=== PATIENT | female | born 1990 | race African-American/Black ===

== ENCOUNTER 2016-05-04 12:56 | Emergency (ER) | payer BC, OTHER ==
--- NOTE | 2016-05-04 13:06 | ER Document Report ---
ED Medical Screen (RME) - General Stated Complaint: POSSIBLE FOREIGN BODY Notes: 25 yo female c/o condom stuck in vagina since last night. no pain TRAVEL OUTSIDE OF THE [place] IN LAST 30 DAYS: No - Related Data Allergies/Adverse Reactions: No Known Drug Allergies Allergy (Verified 02/27/16 11:12) Past Medical History Pulmonary Medical History: Reports: Hx Bronchitis Endocrine Medical History: Denies: Hx Diabetes Mellitus Type 1, Hx Diabetes Mellitus Type 2 - Immunizations Immunizations up to date: Yes Hx Diphtheria, Pertussis, Tetanus Vaccination: Yes
[2016-05-04 14:09] VITALS: BP 124/78
--- NOTE | 2016-05-04 16:31 | ER Document Report ---
ED Foreign Body - General Mode of Arrival: Ambulatory Information source: Patient TRAVEL OUTSIDE OF THE [place] IN LAST 30 DAYS: No - HPI Patient complains to provider of: Condom stuck in Vagina Location of foreign body: Vagina Onset: This afternoon - General Chief Complaint: Foreign Body in Vagina Stated Complaint: POSSIBLE FOREIGN BODY Notes: 25 year old female presents to the ED complaining of a condom stuck in her vagina after having intercourse earlier today. Patient has no other complaints. (ADELAIDA CARABALLO) - Related Data Allergies/Adverse Reactions: No Known Drug Allergies Allergy (Verified 05/04/16 13:05) Home Medications: Current Home Medications No Home Medications 05/04/16 [History] Past Medical History - General Information source: Patient - Social History Smoking Status: Current Every Day Smoker Chew tobacco use (# tins/day): No Frequency of alcohol use: None Drug Abuse: None Family History: Reviewed & Not Pertinent Patient has suicidal ideation: No Patient has homicidal ideation: No Pulmonary Medical History: Reports: Hx Bronchitis Endocrine Medical History: Denies: Hx Diabetes Mellitus Type 1, Hx Diabetes Mellitus Type 2 Renal/ Medical History: Denies: Hx Peritoneal Dialysis Surgical Hx: Negative - Immunizations Immunizations up to date: Yes Hx Diphtheria, Pertussis, Tetanus Vaccination: Yes Review of Systems - Review of Systems Constitutional: No symptoms reported EENT: No symptoms reported Cardiovascular: No symptoms reported Respiratory: No symptoms reported Gastrointestinal: No symptoms reported Genitourinary: No symptoms reported Female Genitourinary: See HPI, Other - Condom stuck in patient's vagina Musculoskeletal: No symptoms reported Skin: No symptoms reported Hematologic/Lymphatic: No symptoms reported Neurological/Psychological: No symptoms reported -: Yes All other systems reviewed and negative Physical Exam - Vital signs Interpretation: Normal - General General appearance: Alert In distress: None - HEENT Head: Normocephalic, Atraumatic Eyes: Normal Extraocular movements intact: Yes Pupils: PERRL - Respiratory Respiratory status: No respiratory distress - Cardiovascular Rhythm: Regular - Abdominal Inspection: Normal Distension: No distension Tenderness: Nontender - Genitourinary External exam: Normal Bimanuel exam: Normal, Other - Condom was visualized and extracted. - Back Back: Normal - Extremities General upper extremity: Normal inspection, Normal ROM General lower extremity: Normal inspection, Normal ROM - Neurological Neuro grossly intact: Yes Cognition: Normal Orientation: AAOx4 [place] Coma Scale Eye Opening: Spontaneous [place] Coma Scale Verbal: Oriented Julita Coma Scale Motor: Obeys Commands [place] Coma Scale Total: 15 Speech: Normal - Psychological Associated symptoms: Normal affect, Normal mood - Skin Skin Temperature: Warm Skin Moisture: Dry Skin Color: Normal - Vital signs Vitals: Temp Pulse Resp BP Pulse Ox 98.2 F 76 18 124/78 97 05/04/16 13:07 05/04/16 13:07 05/04/16 13:07 05/04/16 13:07 05/04/16 13:07 (JOEY ISAAC) Course - Re-evaluation Re-evalutation: 05/04/16 16:32 I personally performed the services described in the documentation, reviewed and edited the documentation which was dictated to my scribe in my presence, and it accurately records my words and actions. presents to the emergency per chief complaint have a condom stuck in my vagina. She states it got left in the last evening she is unable to retain it. She has no complaints. No fever chills or discharge. Pelvic examination performed condom was easily pulled out with Dolly forceps. Patient is stable no puncture wounds infection or drainage. Patient was discharged follow up as needed return for increasing worsening or new symptoms (JOEY ISAAC) - Vital Signs Vital signs: Temp Pulse Resp BP Pulse Ox 98.2 F 76 18 124/78 97 05/04/16 13:07 05/04/16 13:07 05/04/16 13:07 05/04/16 13:07 05/04/16 13:07 (JOEY ISAAC) (ADELAIDA CARABALLO) Discharge - Discharge Clinical Impression: vaginal foreign body with removal Condition: Stable Disposition: HOME, SELF-CARE Additional Instructions: You have been seen and evaluated for a condom in your vagina which was successfully removed without complications. Follow-up as needed with your primary care physician return for increasing worsening or new symptoms Scribe Documentation - Scribe Written by Scribe:: Carina Mulligan, 05/04/2016, [id number] acting as scribe for :: Salvador
== END 2016-05-04 16:54 | disposition home or self-care (01) ==
LOC: ER 12:56
DX: T19.2XXA Foreign body in vulva and vagina, initial encounter (principal); F17.200 Nicotine dependence, unspecified, uncomplicated; X58.XXXA Exposure to other specified factors, initial encounter
CPT/HCPCS: 99283

== ENCOUNTER 2016-09-23 12:46 | Emergency (ER) | payer SELFPAY ==
--- NOTE | 2016-09-23 13:05 | ER Document Report ---
ED Medical Screen (RME) - General Chief Complaint: Abdominal Pain Stated Complaint: FOOT PAIN,HEADACHE,RASH Time Seen by Provider: 09/23/16 13:03 Mode of Arrival: Ambulatory Information source: Patient TRAVEL OUTSIDE OF THE [place] IN LAST 30 DAYS: No - HPI Patient complains to provider of: abdominal pain, rash, rectal bleeding Onset: Other - Pt with multiple c/o including AHUJA, rash, R foot pain, abdominal pain, and rectal bleeding . - Related Data Allergies/Adverse Reactions: No Known Drug Allergies Allergy (Verified 05/04/16 13:05) Past Medical History Pulmonary Medical History: Reports: Hx Bronchitis Endocrine Medical History: Denies: Hx Diabetes Mellitus Type 1, Hx Diabetes Mellitus Type 2 Renal/ Medical History: Denies: Hx Peritoneal Dialysis - Immunizations Immunizations up to date: Yes Hx Diphtheria, Pertussis, Tetanus Vaccination: Yes Physical Exam - Vital signs Vitals: Temp Pulse Resp BP Pulse Ox 98.1 F 69 14 133/94 H 98 09/23/16 12:51 09/23/16 12:51 09/23/16 12:51 09/23/16 12:51 09/23/16 12:51 Course - Vital Signs Vital signs: Temp Pulse Resp BP Pulse Ox 98.1 F 69 14 133/94 H 98 09/23/16 12:51 09/23/16 12:51 09/23/16 12:51 09/23/16 12:51 09/23/16 12:51
[2016-09-23 13:32] LABS: ABSOLUTE BASOPHILS # (AUTO) 0.1 10^3/uL (0.0-0.2); ABSOLUTE EOSINOPHILS # (AUTO) 0.3 10^3/uL (0.0-0.6); ABSOLUTE LYMPHOCYTES (AUTO) 2.1 10^3/uL (0.5-4.7); ABSOLUTE MONOCYTES (AUTO) 0.6 10^3/uL (0.1-1.4); BASOPHILS % (AUTO) 1.3 % (0-2); EOSINOPHILS % (AUTO) 5.4 % (0-6); HEMATOCRIT 39.9 % (36.0-47.0); HEMOGLOBIN 13.1 g/dL (12.0-15.5); HGB HCT DIFFERENCE -0.6; LYMPHOCYTES % (AUTO) 34.4 % (13-45); MEAN CORPUSCULAR HEMOGLOBIN 28.1 pg (27.0-33.4); MEAN CORPUSCULAR HGB CONC 32.7 g/dL (32.0-36.0); MEAN CORPUSCULAR VOLUME 86 fl (80-97); MONOCYTES % (AUTO) 9.4 % (3-13); RED BLOOD COUNT 4.66 10^6/uL (3.72-5.28); RED CELL DISTRIBUTION WIDTH 13.8 % (11.5-14.0); SEGMENTED NEUTROPHILS % (AUTO) 49.5 % (42-78); WHITE BLOOD COUNT 6.1 10^3/uL (4.0-10.5)
[2016-09-23 13:38] LABS: APPEARANCE,URINE SLIGHTLY-CLOUDY; BILIRUBIN,URINE NEGATIVE (NEGATIVE); GLUCOSE, URINE NEGATIVE (NEGATIVE); KETONES,URINE NEGATIVE (NEGATIVE); LEUKOCYTE ESTERASE,URINE NEGATIVE (NEGATIVE); NITRITE,URINE NEGATIVE (NEGATIVE); PROTEIN,URINE NEGATIVE (NEGATIVE); UROBILINOGEN,URINE NEGATIVE mg/dL (<2.0)
[2016-09-23 13:49] LABS: ALANINE AMINOTRANSFERASE 29 U/L (9-52); ALBUMIN 4.4 g/dL (3.5-5.0); ALKALINE PHOSPHATASE 97 U/L (38-126); ANION GAP 10 (5-19); ASPARTATE AMINO TRANSFERASE 30 U/L (14-36); BILIRUBIN,DIRECT 0.2 mg/dL (0.0-0.4); BILIRUBIN,TOTAL 1.2 mg/dL (0.2-1.3); BLOOD UREA NITROGEN 13 mg/dL (7-20); CALCIUM 9.4 mg/dL (8.4-10.2); CARBON DIOXIDE 23 mmol/L (22-30); CHLORIDE 107 mmol/L (98-107); CREATININE RESULT 0.87 mg/dL (0.52-1.25); GLUCOSE 93 mg/dL (75-110); LIPASE 29.8 U/L (23-300); POTASSIUM 4.2 mmol/L (3.6-5.0); SODIUM 140.1 mmol/L (137-145); TOTAL PROTEIN 8.3 g/dL (6.3-8.2)
[2016-09-23] MEDS ORDERED: NORMAL SALINE 1000 ML 1,000 ML IV ONE (14:53)
[2016-09-23] MEDS ORDERED: KETOROLAC TROMETHAMINE INJ/PF 30 MG/1 ML SDV IV ONE (14:55)
[2016-09-23] MEDS ORDERED: PROCHLORPERAZINE EDISYLATE INJ 10 MG/2 ML VIAL IV ONE (14:55)
--- NOTE | 2016-09-23 14:59 | ER Document Report ---
ED GI/ - General Chief Complaint: Abdominal Pain Stated Complaint: FOOT PAIN,HEADACHE Time Seen by Provider: 09/23/16 13:03 Mode of Arrival: Ambulatory Information source: Patient Notes: Patient is a 25-year-old female who presents to the ER today for multiple complaints, including a "knot" to the bottom of the right foot 3 weeks and is very painful. She denies any injury, swelling, redness. She also complains of a migraine 2 days. She has a history of migraines. She admits to light and sound sensitivity but denies any nausea, vomiting. She has been taking Motrin at home which has not been helping. She denies any blurred vision. She also complains of a rash to her thighs, top of the foot that started approximately 3 weeks ago. She has no history of this rash. She states that it is very itchy. TRAVEL OUTSIDE OF THE [place] IN LAST 30 DAYS: No - Related Data Allergies/Adverse Reactions: No Known Drug Allergies Allergy (Verified 05/04/16 13:05) Past Medical History - General Information source: Patient - Social History Smoking Status: Unknown if Ever Smoked Chew tobacco use (# tins/day): No Family History: Reviewed & Not Pertinent Patient has suicidal ideation: No Patient has homicidal ideation: No Pulmonary Medical History: Reports: Hx Bronchitis Endocrine Medical History: Denies: Hx Diabetes Mellitus Type 1, Hx Diabetes Mellitus Type 2 Renal/ Medical History: Denies: Hx Peritoneal Dialysis Surgical Hx: Negative - Immunizations Immunizations up to date: Yes Hx Diphtheria, Pertussis, Tetanus Vaccination: Yes Review of Systems - Review of Systems Constitutional: No symptoms reported EENT: No symptoms reported Cardiovascular: No symptoms reported Respiratory: No symptoms reported Gastrointestinal: No symptoms reported Genitourinary: No symptoms reported Female Genitourinary: No symptoms reported Musculoskeletal: No symptoms reported Skin: See HPI Hematologic/Lymphatic: No symptoms reported Neurological/Psychological: See HPI Physical Exam - Vital signs Vitals: Temp Pulse Resp BP Pulse Ox 98.1 F 69 14 133/94 H 98 09/23/16 12:51 09/23/16 12:51 09/23/16 12:51 09/23/16 12:51 09/23/16 12:51 - Notes Notes: PHYSICAL EXAMINATION: GENERAL: Laying in dark room, otherwise in no acute distress. HEAD: Atraumatic, normocephalic. EYES: Pupils equal round and reactive to light, extraocular movements intact, sclera anicteric, conjunctiva are normal. NECK: Normal range of motion, supple without lymphadenopathy LUNGS: CTAB and equal. No wheezes rales or rhonchi. HEART: Regular rate and rhythm without murmurs ABDOMEN: Soft, no tenderness. No guarding, no rebound BACK: no vertebral tenderness, normal ROM GI/: no CVA tenderness EXTREMITIES: Normal range of motion, no pitting edema. No cyanosis. NEUROLOGICAL: Cranial nerves grossly intact. Normal sensory/motor exams. PSYCH: Normal mood, normal affect. SKIN: Warm, Dry, normal turgor, large callus to the plantar surface of the right foot, darkened macular rash with white plaques over anterior thighs, posterior thighs, dorsal right foot Course - Vital Signs Vital signs: Temp Pulse Resp BP Pulse Ox 98.1 F 69 14 133/94 H 98 09/23/16 12:51 09/23/16 12:51 09/23/16 12:51 09/23/16 12:51 09/23/16 12:51 - Laboratory Result Diagrams: 09/23/16 13:10 09/23/16 13:10 Laboratory results interpreted by me: 09/23/16 09/23/16 13:06 13:10 Total Protein 8.3 H Urine Blood LARGE H Discharge - Discharge Clinical Impression: Psoriasis, Callus Headache Qualifiers: Headache type: unspecified Headache chronicity pattern: acute headache Intractability: not intractable Qualified Code(s): R51 - Headache Condition: Stable Disposition: HOME, SELF-CARE Additional Instructions: Return immediately for any new or worsening symptoms. Follow up with primary care provider, call tomorrow to make followup appointment. Prescriptions: Hydrocortisone 28.35 gm TP DAILY #1 oint..gm. Ibuprofen [Motrin 800 mg Tablet] 800 mg PO Q8H PRN #30 tab PRN Reason: Forms: Return to Work
[2016-09-23] MEDS ORDERED: MUPIROCIN 2% OINTMENT 22 GM TP ONE (15:10)
[2016-09-23] MEDS ORDERED: HYDROXYZINE HCL 10 MG TABLET PO ONE (15:20)
[2016-09-23 16:21] VITALS: BP 114/79
== END 2016-09-23 16:21 | disposition home or self-care (01) ==
LOC: ER 12:46
DX: L40.9 Psoriasis, unspecified (principal); L84 Corns and callosities; R51 Headache; K62.5 Hemorrhage of anus and rectum; R10.9 Unspecified abdominal pain; M79.671 Pain in right foot
CPT/HCPCS: 99284; 96361; 96374; 96375; 36415; 83690; 85025; 81025; 80053; 81001; J1885; J0780; J7030; J3490

== ENCOUNTER 2016-12-05 08:25 | Emergency (ER) | payer SELFPAY ==
[2016-12-05] MEDS ORDERED: HYDROMORPHONE HCL INJ/PF 2 MG/ML AMPULE IM ONE (09:38)
[2016-12-05] MEDS ORDERED: KETOROLAC TROMETHAMINE 60 MG/2 ML SDV IM ONE (09:38)
--- NOTE | 2016-12-05 09:41 | ER Document Report ---
HPI - HPI Patient complains to provider of: Right lower leg pain Onset: Other Onset/Duration: Worse - 1 month Quality of pain: Sharp Pain Level: 5 Context: Patient complains of right hip pain that radiates to the right lower leg for the past month. Patient denies any injury. Patient does complain of malodorous urine. Patient denies any fever. Patient denies any urinary retention or incontinence. Associated Symptoms: Other - Right lower extremity pain. denies: Fever Exacerbated by: Standing, Movement, Walking Relieved by: Denies Similar symptoms previously: No Recently seen / treated by doctor: Yes - ROS ROS below otherwise negative: Yes Systems Reviewed and Negative: Yes All other systems reviewed and negative - CONSTITUTIONAL Constitutional: DENIES: Fever - NEURO Neurology: DENIES: Headache, Weakness - GASTROINTESTINAL Gastrointestinal: DENIES: Nausea - URINARY Urinary: DENIES: Dysuria Notes: Malodorous urine - REPRODUCTIVE Reproductive: DENIES: : - MUSCULOSKELETAL Musculoskeletal: REPORTS: Extremity pain. DENIES: Back Pain, Neck Pain - DERM Skin Color: Normal Skin Problems: None Past Medical History - General Information source: Patient - Social History Smoking Status: Current Every Day Smoker Frequency of alcohol use: None Drug Abuse: None Occupation: None Family History: None - Medical History Medical History: Negative Pulmonary Medical History: Reports: Hx Bronchitis Endocrine Medical History: Denies: Hx Diabetes Mellitus Type 1, Hx Diabetes Mellitus Type 2 Renal/ Medical History: Denies: Hx Peritoneal Dialysis Surgical Hx: Negative - Immunizations Immunizations up to date: Yes Hx Diphtheria, Pertussis, Tetanus Vaccination: Yes Vertical Provider Document - CONSTITUTIONAL Agree With Documented VS: Yes General Appearance: Mild Distress - pt tearful, anxious - INFECTION CONTROL TRAVEL OUTSIDE OF THE [place] IN LAST 30 DAYS: No - HEENT HEENT: Atraumatic, Normocephalic - NECK Neck: Normal Inspection, Supple - RESPIRATORY Respiratory: Breath Sounds Normal, No Respiratory Distress O2 Sat by Pulse Oximetry: 100 - CARDIOVASCULAR Cardiovascular: Regular Rate, Regular Rhythm, No Murmur Pulses: Normal: Dorsalis pedis - MUSCULOSKELETAL/EXTREMETIES Musculoskeletal/Extremeties: MAEW - right SI joint tenderness - NEURO Level of Consciousness: Awake, Alert - Hysterically crying during history taking Motor/Sensory: No Motor Deficit, No Sensory Deficit Notes: no saddle anesthesia, no foot drop, normal gait - DERM Integumentary: Warm, Dry, Rash - scaling dorsal aspectof right foot Course - Re-evaluation Re-evalutation: 12/05/16 Patient visibly more comfortable. Discussed worsening symptoms that patient should return immediately for. The patient presents with right hip and lower extremity the pain without signs of spinal cord compression, cauda equina syndrome, infection, aneurysm, or other serious etiology. The patient is neurologically intact. Given the extremely risk of these diagnoses further testing and evaluation for these possibilities does not appear to be indicated at this time. Patient has been instructed to return if the symptoms worsen or change in any way. The patient has been informed that they may have pre-hypertension or hypertension based on a blood pressure reading in the emergency department. I recommend that patient call the primary care provider listed on their discharge instructions or a physician of their choice by this week to arrange follow-up for further evaluation of possible pre-hypertension or hypertension. - Vital Signs Vital signs: Temp Pulse Resp BP Pulse Ox 98.4 F 77 18 164/99 H 100 12/05/16 08:29 12/05/16 08:29 12/05/16 08:29 12/05/16 08:12/05/16 08:29 - Diagnostic Test Radiology reviewed: Reports reviewed Discharge - Discharge Clinical Impression: Elevated blood pressure reading, Facet arthritis of lumbar region Sciatica Qualifiers: Laterality: right Qualified Code(s): M54.31 - Sciatica, right side Hematuria Qualifiers: Hematuria type: unspecified type Qualified Code(s): R31.9 - Hematuria, unspecified Condition: Stable Disposition: HOME, SELF-CARE Instructions: Trimethoprim-Sulfa ([facility]), Urinary Tract Infection ([facility]) Additional Instructions: Return immediately for any new or worsening symptoms Followup with your primary care provider, call tomorrow to make a followup appointment Urine culture is pending, we will call if you need any different treatment LOW BACK PAIN: Three out of every four people will have an episode of disabling back pain during their lifetime. Most commonly the pain is due to straining of the muscles and ligaments in the low back. Usual treatment includes: (1) Rest on a firm surface. Avoid lying on your stomach. (2) Ice pack the painful area. After a few days, gentle heat may be used intermittently to relax the area, or ice packs can be continued. (3) Medication may be needed -- muscle relaxers and antiinflammatory medicines are commonly used. (4) As the back improves, exercises are prescribed to strengthen the back and abdominal muscles. Your doctor will advise you on the proper care for your back at each stage in your recovery. You may be better in a few days -- or healing may take several weeks. If new symptoms of a "herniated disc" (radiation of pain, numbness, or tingling down the back of the leg or weakness in the leg) occur, you should be re-examined. Further testing may be necessary. PAIN MEDICATION INJECTION: You have received an injection of a pain medication. You should experience significant pain relief within 45 minutes. If this injection was a narcotic -- it will impair your judgement, slow your reaction time and make you sleepy (as well as relieve your pain). Narcotics also can cause nausea. You should not drive, work with machinery, or perform any task requiring mental alertness until all effects of the medication are gone -- six to eight hours. Do not take any alcohol, or sedatives, and do not take any other medication without checking with your physician. ORAL NARCOTIC MEDICATION: You have been given a prescription for pain control. This medication is a narcotic. It's best taken with food, as nausea can result if taken on an empty stomach. Don't operate machinery or drive within six hours of taking this medication. Do not combine this medicine with alcohol, or with any medication which can cause sedation (such as cold tablets or sleeping pills) unless you get permission from the physician. Narcotics tend to cause constipation. If possible, drink plenty of fluids and eat a diet high in fiber and fruits. Please be aware that prescription narcotics also have the potential for abuse. People become addicted to these medications because of the general sense of wellbeing that they induce. This feeling along with a significant reduction in tension, anxiety, and aggression provides a stimulating seductive quality to these drugs. Once your pain is under control, we encourage you to discard your unused narcotics. ICE PACKS: Apply ice packs frequently against the painful area. Many different schedules are recommended, such as "20 minutes on, 20 minutes off" or "one hour ice, two hours rest." If you need to work, you may need to go longer between ice treatments. You should plan to have the area ice packed AT LEAST one fourth of the time. The ice should be applied over the wrap, tape, or splint, or over a layer of cloth -- not directly against the skin. Some ice bags have a built-in cloth and can be put directly on the skin. WARM PACKS: After approximately two days, apply gentle heat (such as a heating pad or hot water bottle) for about 20 to 30 minutes about every two hours -- at least four times daily. Warmth and elevation will help you make a more rapid recovery , and will ease the pain considerably. Do not use HOT heat, and never apply heat for longer than 30 minutes. The continuous heat can invisibly damage skin and muscles -- even when no burn is seen on the surface. Damaged muscles can make you MORE sore. FOLLOW-UP CARE: If you have been referred to a physician for follow-up care, call the physician s office for an appointment as you were instructed or within the next two days. If you experience worsening or a significant change in your symptoms, notify the physician immediately or return to the Emergency Department at any time for re-evaluation. Prescriptions: Naproxen [Naprosyn 250 Nmg Tablet] 1 tab PO BID #14 tablet Oxycodone HCl/Acetaminophen [Percocet 5-325 mg Tablet] 1 - 2 tab PO ASDIR PRN # 15 tablet PRN Reason: Sulfamethoxazole/Trimethoprim [Bactrim Ds Tablet] 1 each PO BID #10 tablet Forms: Elevated Blood Pressure Referrals: [facility] [Provider Group] - Follow up as needed [facility] [Provider Group] - Follow up tomorrow
[2016-12-05 10:36] LABS: APPEARANCE,URINE CLOUDY; BILIRUBIN,URINE NEGATIVE (NEGATIVE); GLUCOSE, URINE NEGATIVE (NEGATIVE); KETONES,URINE NEGATIVE (NEGATIVE); LEUKOCYTE ESTERASE,URINE TRACE (NEGATIVE); NITRITE,URINE NEGATIVE (NEGATIVE); PROTEIN,URINE NEGATIVE (NEGATIVE); URINE SPECIFIC GRAVITY 1.026; UROBILINOGEN,URINE NEGATIVE mg/dL (<2.0)
--- NOTE | 2016-12-05 11:59 | RADIOLOGY REPORT (SQ) ---
EXAM DESCRIPTION: L SPINE WHOLE COMPLETED DATE/TIME: 12/05/2016 11:24 am REASON FOR STUDY: RLE pain COMPARISON: CT abdomen and pelvis 05/26/2012 Lumbar spine films 02/27/2016 NUMBER OF VIEWS: Five views including obliques. TECHNIQUE: AP, lateral, oblique, and sacral radiographic images acquired of the lumbar spine. LIMITATIONS: None. FINDINGS: MINERALIZATION: Normal. SEGMENTATION: Normal. No transitional anatomy. ALIGNMENT: Normal. VERTEBRAE: Maintained height. No fracture or worrisome bone lesion. DISCS: Very mild disc space loss of height at L5-S1. POSTERIOR ELEMENTS: Pedicles and facets are intact. No pars defect or posterior arch defects. Mild bilateral facet arthropathy at L5-S1. HARDWARE: None in the spine. PARASPINAL SOFT TISSUES: Normal. PELVIS: Intact as visualized. No fractures or worrisome bone lesions. SI joints intact. OTHER: No other significant finding. IMPRESSION: Mild degenerative changes at L5-S1. TECHNICAL DOCUMENTATION: JOB ID: [id number] [employer]- All Rights Reserved
[2016-12-05 12:33] VITALS: BP 129/80
== END 2016-12-05 12:30 | disposition home or self-care (01) ==
LOC: ER 08:25
DX: M54.31 Sciatica, right side (principal); R31.9 Hematuria, unspecified; R03.0 Elevated blood-pressure reading, without diagnosis of hypertension; M13.88 Other specified arthritis, other site; M79.604 Pain in right leg; M25.551 Pain in right hip; F17.200 Nicotine dependence, unspecified, uncomplicated
CPT/HCPCS: 99283; 96372; 87086; 81025; 87088; 81001; 87186; 72110; J1885; J1170

== ENCOUNTER 2017-01-04 09:34 | Emergency (ER) | payer SELFPAY ==
[2017-01-04] MEDS ORDERED: DEXAMETHASONE SOD PHOS INJ 10 MG/1 ML VIAL IV ONE (10:27)
[2017-01-04] MEDS ORDERED: KETOROLAC TROMETHAMINE INJ/PF 30 MG/1 ML SDV IV ONE (10:27)
[2017-01-04] MEDS ORDERED: LIDOCAINE 5% (700 MG) TRANSDERMAL ADH..PATCH TP ONE (10:39)
--- NOTE | 2017-01-04 10:43 | ER Document Report ---
ED ENT - General Chief Complaint: Sore Throat Stated Complaint: DIFFICULTY BREATHING Time Seen by Provider: 01/04/17 10:13 Mode of Arrival: Ambulatory Information source: Patient Notes: 26-year-old female with complaints of sore throat with left ear pain runny nose for 2-3 days. She states she has not been able to eat anything for 2 days. She states that her throat is so sore that it is very difficult to swallow. She states she also has a history of sciatic pain and it is been bad for the last couple days to the point that she cannot sleep. TRAVEL OUTSIDE OF THE [place] IN LAST 30 DAYS: No - HPI Patient complains to provider of: Throat problem, Other - low back pain Onset: Other - 2 days Onset/Duration: Gradual, Worse Severity: Severe Pain Level: 5 Location of pain: Ears, Throat, Other - low back Associated symptoms: Runny nose, Sinus drainage, Sore throat, Other - left very large tonsil Similar symptoms previously: Yes - Yes to the back pain no to the sore throat - Related Data Allergies/Adverse Reactions: No Known Drug Allergies Allergy (Verified 01/04/17 09:35) Past Medical History - Social History Smoking Status: Current Every Day Smoker Cigarette use (# per day): Yes - 5 cigarettes a day Chew tobacco use (# tins/day): No Smoking Education Provided: Yes - Less than 1 minute Frequency of alcohol use: None Drug Abuse: None Occupation: None Lives with: Family Family History: Hypertension, Other - Father on dialysis Patient has suicidal ideation: No Patient has homicidal ideation: No - Past Medical History Cardiac Medical History: Reports: None Pulmonary Medical History: Reports: Hx Bronchitis EENT Medical History: Reports: None Neurological Medical History: Reports: None Endocrine Medical History: Reports: None Renal/ Medical History: Reports: None Malignancy Medical History: Reports: None GI Medical History: Reports: None Musculoskeltal Medical History: Reports Hx Arthritis, Reports Hx Musculoskeletal Deformity - Sciatica Skin Medical History: Reports None Traumatic Medical History: Reports: None Infectious Medical History: Reports: None Surgical Hx: Negative - Immunizations Immunizations up to date: Yes Hx Diphtheria, Pertussis, Tetanus Vaccination: Yes Review of Systems - Review of Systems Constitutional: Recent illness. denies: Fever EENT: Ear pain, Nose discharge, Sinus discharge, Throat pain Cardiovascular: No symptoms reported Respiratory: No symptoms reported Gastrointestinal: No symptoms reported Genitourinary: No symptoms reported Female Genitourinary: No symptoms reported Musculoskeletal: Back pain Skin: No symptoms reported Hematologic/Lymphatic: No symptoms reported Neurological/Psychological: No symptoms reported Physical Exam - Vital signs Vitals: Temp Pulse Resp BP Pulse Ox 98.7 F 96 16 136/80 H 99 01/04/17 09:39 01/04/17 09:39 01/04/17 09:39 01/04/17 09:39 01/04/17 09:39 Interpretation: Normal - General General appearance: Appears well, Alert - HEENT Head: Normocephalic, Atraumatic Eyes: Normal Pupils: PERRL - Respiratory Respiratory status: No respiratory distress Chest status: Nontender Breath sounds: Normal Chest palpation: Normal - Cardiovascular Rhythm: Regular Heart sounds: Normal auscultation Murmur: No - Abdominal Inspection: Normal Distension: No distension Bowel sounds: Normal Tenderness: Nontender Organomegaly: No organomegaly - Back Back: Normal, Tender, Other - Pain radiating to legs. No: Deformity/step-off, CVA tenderness, Scars, Scoliosis, Wounds - Extremities General upper extremity: Normal inspection, Nontender, Normal color, Normal ROM , Normal temperature General lower extremity: Normal inspection, Nontender, Normal color, Normal ROM , Normal temperature, Normal weight bearing. No: Jorge's sign - Neurological Neuro grossly intact: Yes Cognition: Normal Orientation: AAOx4 [place] Coma Scale Eye Opening: Spontaneous [place] Coma Scale Verbal: Oriented [place] Coma Scale Motor: Obeys Commands [place] Coma Scale Total: 15 Speech: Normal Motor strength normal: LUE, RUE, LLE, RLE Sensory: Normal - Psychological Associated symptoms: Normal affect, Normal mood - Skin Skin Temperature: Warm Skin Moisture: Dry Skin Color: Normal Course - Re-evaluation Re-evalutation: 01/04/17 18:56 Patient is seen 2 times for her tonsillitis the first time she had CT soft tissue neck with contrast with strep test CBC chemistry. She was treated with Toradol Decadron and clindamycin IV. She was discharged and sent to Dr. Zee' s office for follow-up due to the size of her left tonsil. When she got there she refused to pay a co-pay and so Dr. Deleon called had her brought back to the emergency room so he could examine her in the emergency room. She returned she had a complete examination and he stated that she needed to be treated as we had discussed earlier and to follow-up with his office if she decided she wanted the tonsils out as he recommended. Patient was again discharged home. - Vital Signs Vital signs: Temp Pulse Resp BP Pulse Ox 98.1 F 85 18 130/74 H 100 01/04/17 12:08 01/04/17 12:08 01/04/17 12:08 01/04/17 12:08 01/04/17 12:08 - Laboratory Result Diagrams: 01/04/17 10:39 01/04/17 10:39 Laboratory results interpreted by me: 01/04/17 10:39 Monocytes % 13.6 H - Diagnostic Test Radiology reviewed: Image reviewed, Reports reviewed Discharge - Discharge Clinical Impression: TONSILITIS LEFT Condition: Stable Disposition: HOME, SELF-CARE Additional Instructions: Tonsillitis Tonsillitis is infection of the tonsils. Symptoms include sore throat, difficulty swallowing, fever and aches, and tender lumps under the angle of the jaw. Tonsillitis can be caused by bacteria or viruses. Viral tonsillitis must get better on its own. Antibiotics don't help. The doctor may test for mononucleosis if symptoms last many days. We can only treat the symptoms. Bacterial tonsillitis is treated with antibiotics. It may take a few days before improvement occurs. It's important to take all the antibiotics. Take acetaminophen or ibuprofen for pain and fever. Sip frequent clear liquids, or use popsicles or ice chips. Anesthetic sprays or lozenges may help a little (the pain of tonsillitis is deep, and isn't helped much by numbing the surface). Make sure the air in the room is not too dry. Avoid using decongestants or antihistamines. Tonsillectomy may be necessary if you have several episodes of tonsillitis within a couple of years, or if there are complications from your tonsillitis. It's usually not needed. Call the doctor if there is no improvement in two days, or if you have difficulty breathing, increasing throat pain, high fever, rash, or frequent vomiting. Augmentin Augmentin is a mixture of amoxicillin and clavulanate. Amoxicillin is a member of the penicillin family. It covers the germs likely to cause ear, bronchial, and urinary infections better than plain penicillin. The addition of clavulanate allows it to cover staph infections of the skin, as well as resistant cases of ear and sinus infections. Your physician has chosen Augmentin for you because of the special nature of your situation. Augmentin is best taken with meals. Nausea after taking the medication is rare, but can occur. Diarrhea can occur, particularly in small children. Vaginal yeast infections, and oral thrush in infants are also common. Contact your physician if these problems occur. Allergy to penicillins is common. If you have had an allergic reaction to any drug of the penicillin family, you should never take any other penicillin. Notify your doctor at once if you develop hives, shortness of breath, swelling, or faintness. STEROID MEDICATION: You have been given an injection of medicine of the cortisone/steroid class. This medication is used to control inflammation or allergy. It is often continued as a pill for a short period of time, until the acute process subsides. There are usually no side effects from short-term use of cortisone-like medications. Some persons feel an increased sense of well-being and are not sleepy at bedtime. Long-term use of cortisone medications is best avoided, unless required for a severe condition. If your condition does not remit, or relapses after the course of corticosteroid medication, you should consult your physician. STEROID MEDICATION: You have been given a medicine of the cortisone/steroid class. This medication is used to control inflammation or allergy. It is usually only given for a short period of time, until the acute process subsides. There are usually no side effects from short-term use of cortisone-like medications. Some persons feel an increased sense of well-being and are not sleepy at bedtime. Long-term use of cortisone medications is best avoided, unless required for a severe condition. If your condition does not remit, or relapses after the course of corticosteroid medication, you should consult your physician. ORAL NARCOTIC MEDICATION: You have been given a prescription for pain control. This medication is a narcotic. It's best taken with food, as nausea can result if taken on an empty stomach. Don't operate machinery or drive within six hours of taking this medication. Do not combine this medicine with alcohol, or with any medication which can cause sedation (such as cold tablets or sleeping pills) unless you get permission from the physician. Narcotics tend to cause constipation. If possible, drink plenty of fluids and eat a diet high in fiber and fruits. Please be aware that prescription narcotics also have the potential for abuse. People become addicted to these medications because of the general sense of wellbeing that they induce. This feeling along with a significant reduction in tension, anxiety, and aggression provides a stimulating seductive quality to these drugs. Once your pain is under control, we encourage you to discard your unused narcotics. FOLLOW-UP CARE: If you have been referred to a physician for follow-up care, call the physician s office for an appointment as you were instructed or within the next two days. If you experience worsening or a significant change in your symptoms, notify the physician immediately or return to the Emergency Department at any time for re-evaluation. Prescriptions: Hydrocodone/Acetaminophen [[place] 5-325 mg Tablet] 1 tab PO Q6HP PRN #10 tablet PRN Reason: Amox Tr/Potassium Clavulanate [Augmentin 400-57 mg/5 mL Suspension] 875 mg PO TID 10 Days #2 bottle Dexamethasone [Decadron 4 Mg Tablet] 8 mg PO DAILY 3 Days #6 tablet Forms: Smoking Cessation Education, Elevated Blood Pressure Referrals: JACKIE ARREOLA MD [Primary Care Provider] - Follow up as needed OCTAVIA GRANADOS DO [ASSOCIATE] - Follow up as needed
[2017-01-04 10:54] LABS: ABSOLUTE BASOPHILS # (AUTO) 0.1 10^3/uL (0.0-0.2); ABSOLUTE EOSINOPHILS # (AUTO) 0.1 10^3/uL (0.0-0.6); ABSOLUTE LYMPHOCYTES (AUTO) 1.3 10^3/uL (0.5-4.7); ABSOLUTE MONOCYTES (AUTO) 1.1 10^3/uL (0.1-1.4); ABSOLUTE NEUT (AUTO) 5.7 10^3/uL (1.7-8.2); BASOPHILS % (AUTO) 0.7 % (0-2); EOSINOPHILS % (AUTO) 0.9 % (0-6); HEMOGLOBIN 12.5 g/dL (12.0-15.5); HGB HCT DIFFERENCE 0.5; LYMPHOCYTES % (AUTO) 15.5 % (13-45); MEAN CORPUSCULAR HEMOGLOBIN 28.3 pg (27.0-33.4); MEAN CORPUSCULAR HGB CONC 33.7 g/dL (32.0-36.0); MEAN CORPUSCULAR VOLUME 84 fl (80-97); MONOCYTES % (AUTO) 13.6 % (3-13); RED BLOOD COUNT 4.42 10^6/uL (3.72-5.28); RED CELL DISTRIBUTION WIDTH 13.7 % (11.5-14.0); SEGMENTED NEUTROPHILS % (AUTO) 69.3 % (42-78); WHITE BLOOD COUNT 8.2 10^3/uL (4.0-10.5)
[2017-01-04 11:10] LABS: ANION GAP 10 (5-19); BLOOD UREA NITROGEN 13 mg/dL (7-20); CALCIUM 9.4 mg/dL (8.4-10.2); CARBON DIOXIDE 26 mmol/L (22-30); CHLORIDE 106 mmol/L (98-107); CREATININE RESULT 0.73 mg/dL (0.52-1.25); GLUCOSE 89 mg/dL (75-110); SODIUM 142.4 mmol/L (137-145)
--- NOTE | 2017-01-04 11:29 | RADIOLOGY REPORT (SQ) ---
EXAM DESCRIPTION: CT SOFT TISSUE NECK WITH COMPLETED DATE/TIME: 01/04/2017 11:15 am REASON FOR STUDY: extremely large left tonsil COMPARISON: CT soft tissue neck 10/11/2015 TECHNIQUE: Post IV contrasted scanning from skull base through lung apices with review of bone, soft tissue and lung windows. Reconstructed coronal and sagittal MPR images reviewed. All images stored on PACS. All CT scanners at this facility use dose modulation, iterative reconstruction, and/or weight based d osing when appropriate to reduce radiation dose to as low as reasonably achievable (ALARA). [facility]: Dose Right [facility]: CareDose [facility]: Dose Right [facility]: Teradose 4D [facility]: EMED Co CONTRAST TYPE AND DOSE: contrast/concentration: Isovue 370.00 mg/ml; Total Contrast Delivered: 60.8 ml; Total Saline Delivered: 12.0 ml RENAL FUNCTION: None required. The patient is less than 50 years old. RADIATION DOSE: Up-to-date CT equipment and radiation dose reduction techniques were employed. CTDIv ol: 15.9 mGy. DLP: 435 mGy-cm. . LIMITATIONS: None. FINDINGS: SKULL BASE: Intact. MAJOR SALIVARY GLANDS: No solid or cystic masses. No inflammatory changes. LYMPHADENOPATHY: There is diffuse cervical adenopathy mova-arckzrh-nlvy-[id number], throughout the carotid space and posterior triangle regions MUCOSAL MASSES OR ASYMMETRY: Bilateral pharyngeal tonsils are enlarged left greater than right. Tons ils meet in the midline pharynx causing moderate narrowing. On the left side, the tonsil is 4 cm tire changer aircraft niocaudad by 3.2 cm AP by 2.5 cm transverse. No discrete left intra tonsillar or peritonsillar absce ss. On the right side, the pharyngeal tonsil measures 3.4 cm craniocaudad by 2.5 cm AP x 1.7 cm transvers e. No right-sided intra or peritonsillar abscess. Parapharyngeal fat is intact bilaterally. LARYNX/CORDS: No abnormal findings. VASCULAR STRUCTURES: The major vessels are patent. LUNG APICES: Clear. BONES: Intact. THYROID: Normal size. No masses. PARANASAL SINUSES: Clear. OTHER: No other significant finding. IMPRESSION: Enlarged left pharyngeal tonsil without intra or peritonsillar abscess. Moderate pharyn geal airway narrowing. Probable reactive cervical adenopathy left greater than right TECHNICAL DOCUMENTATION: JOB ID: [id number] Quality ID # [id number]: Final reports with documentation of one or more dose reduction techniques (e.g., Au tomated exposure control, adjustment of the mA and/or kV according to patient size, use of iterative reconstruction technique) 2010 [employer]- All Rights Reserved
[2017-01-04 12:08] VITALS: BP 130/74
== END 2017-01-04 12:15 | disposition home or self-care (01) ==
LOC: ER 09:34
DX: J03.90 Acute tonsillitis, unspecified (principal); J02.9 Acute pharyngitis, unspecified; R06.02 Shortness of breath; H92.02 Otalgia, left ear; R09.89 Other specified symptoms and signs involving the circulatory and respiratory systems; F17.210 Nicotine dependence, cigarettes, uncomplicated
CPT/HCPCS: 99284; 96374; 96375; 36415; 87070; 87880; 84703; 85025; 86308; 80048; 70491; J1885; J1100

== ENCOUNTER 2017-01-04 13:47 | Emergency (ER) | payer SELFPAY ==
[2017-01-04] MEDS ORDERED: LIDOCAINE 2% VISCOUS SOLN 20 ML UDCUP PO ONE (14:51)
--- NOTE | 2017-01-04 15:11 | ER Document Report ---
ED ENT - General Chief Complaint: Sore Throat Stated Complaint: SORE THROAT, SWELLING Time Seen by Provider: 01/04/17 13:53 Mode of Arrival: Ambulatory Information source: Patient Notes: Patient was seen earlier today for complaint of sore throat with left ear pain runny nose 5-3 days. Her left tonsil was considerably larger than her right and was patient her uvula to the right. She was speaking with a muffled voice. Labs CT were completed patient was treated with clindamycin Toradol and Decadron. ENT was consulted and patient was sent to his office for an evaluation. When she got to his office she was unable to pay a co-pay so he sent the patient back to the emergency room so that he could assess her in the emergency room. TRAVEL OUTSIDE OF THE [place] IN LAST 30 DAYS: No - HPI Patient complains to provider of: Throat problem Onset: Other - 2-3 days Onset/Duration: Gradual Quality of pain: Sharp, Stabbing Severity: Moderate Pain Level: 3 Context: Recent Illness Location of pain: Ears, Nose, Sinus, Throat Associated symptoms: Ear pain, Runny nose, Sinus pain, Sinus drainage, Sore throat, Other - Muffled voice and back pain Similar symptoms previously: Yes Recently seen / treated by doctor: Yes - Related Data Allergies/Adverse Reactions: No Known Drug Allergies Allergy (Verified 01/04/17 09:35) Past Medical History - General Information source: Patient - Social History Smoking Status: Current Every Day Smoker Chew tobacco use (# tins/day): No Frequency of alcohol use: None Drug Abuse: None Occupation: None Lives with: Family Family History: Hypertension, Other - Early I had stated that follow was on dialysis actually it is her mother that it was on dialysis and has since Patient has suicidal ideation: No Patient has homicidal ideation: No - Past Medical History Cardiac Medical History: Reports: None Pulmonary Medical History: Reports: Hx Bronchitis EENT Medical History: Reports: None Neurological Medical History: Reports: None Endocrine Medical History: Reports: None Renal/ Medical History: Reports: None Malignancy Medical History: Reports: None GI Medical History: Reports: None Musculoskeltal Medical History: Reports Hx Arthritis, Reports Hx Musculoskeletal Deformity - Sciatica Skin Medical History: Reports None Psychiatric Medical History: Reports: None Traumatic Medical History: Reports: None Infectious Medical History: Reports: None Surgical Hx: Negative Past Surgical History: Reports: None - Immunizations Immunizations up to date: Yes Hx Diphtheria, Pertussis, Tetanus Vaccination: Yes Review of Systems - Review of Systems Constitutional: Fever, Recent illness EENT: Ear pain, Nose discharge, Sinus discharge, Throat pain, Other - Muffled voice improving after her Decadron and clindamycin and Toradol Cardiovascular: No symptoms reported Respiratory: No symptoms reported Gastrointestinal: No symptoms reported Genitourinary: No symptoms reported Female Genitourinary: No symptoms reported Musculoskeletal: Back pain - Patient states her back pain is better after the Toradol and Decadron but it is still present Skin: No symptoms reported Hematologic/Lymphatic: No symptoms reported Neurological/Psychological: No symptoms reported -: Yes All other systems reviewed and negative Physical Exam - Vital signs Vitals: Temp Pulse Resp BP Pulse Ox 98.1 F 88 18 128/73 H 100 01/04/17 14:13 01/04/17 14:13 01/04/17 14:13 01/04/17 14:13 01/04/17 14:13 Interpretation: Normal - General General appearance: Appears well, Alert - HEENT Head: Normocephalic, Atraumatic Eyes: Normal Pupils: PERRL Ears: Normal External canal: Normal Tympanic membrane: Normal Sinus: Normal Nasal: Purulent discharge, Swelling Mouth/Lips: Normal Mucous membranes: Normal Pharynx: Erythema, Exudate, Post nasal drainage, Tonsillar hypertrophy, Uvular edema. No: Blood in hypopharynx, Peritonsillar abscess, Retropharyngeal abscess , Potential airway comprom. Neck: Anterior cervical chain - Respiratory Respiratory status: No respiratory distress Chest status: Nontender Breath sounds: Normal Chest palpation: Normal - Cardiovascular Rhythm: Regular Heart sounds: Normal auscultation Murmur: No - Abdominal Inspection: Normal Distension: No distension Bowel sounds: Normal Tenderness: Nontender Organomegaly: No organomegaly - Back Back: Normal, Tender. No: Deformity/step-off, CVA tenderness, Vertebra tenderness, Scars, Scoliosis, Wounds - Extremities General upper extremity: Normal inspection, Nontender, Normal color, Normal ROM , Normal temperature General lower extremity: Normal inspection, Nontender, Normal color, Normal ROM , Normal temperature, Normal weight bearing. No: Jorge's sign - Neurological Neuro grossly intact: Yes Cognition: Normal Orientation: AAOx4 [place] Coma Scale Eye Opening: Spontaneous Julita Coma Scale Verbal: Oriented [place] Coma Scale Motor: Obeys Commands [place] Coma Scale Total: 15 Speech: Normal Motor strength normal: LUE, RUE, LLE, RLE Sensory: Normal - Psychological Associated symptoms: Normal affect, Normal mood - Skin Skin Temperature: Warm Skin Moisture: Dry Skin Color: Normal Course - Re-evaluation Re-evalutation: 01/04/17 19:[address] Granados examined the patient and discussed treatment plan and options with the patient, she was discharged home again. Patient was encouraged to follow-up with Dr. Granados as he recommended. He recommended removal of the tonsils but that it would be an elective procedure. Patient was instructed to return to the emergency room or to Dr. Beauchamp's office for any complications. - Vital Signs Vital signs: Temp Pulse Resp BP Pulse Ox 98.1 F 87 18 128/63 H 100 01/04/17 15:18 01/04/17 15:18 01/04/17 15:18 01/04/17 15:18 01/04/17 15:18 Discharge - Discharge Clinical Impression: Acute bacterial tonsillitis Condition: Stable Disposition: HOME, SELF-CARE Additional Instructions: Tonsillitis Tonsillitis is infection of the tonsils. Symptoms include sore throat, difficulty swallowing, fever and aches, and tender lumps under the angle of the jaw. Tonsillitis can be caused by bacteria or viruses. Viral tonsillitis must get better on its own. Antibiotics don't help. The doctor may test for mononucleosis if symptoms last many days. We can only treat the symptoms. Bacterial tonsillitis is treated with antibiotics. It may take a few days before improvement occurs. It's important to take all the antibiotics. Take acetaminophen or ibuprofen for pain and fever. Sip frequent clear liquids, or use popsicles or ice chips. Anesthetic sprays or lozenges may help a little (the pain of tonsillitis is deep, and isn't helped much by numbing the surface). Make sure the air in the room is not too dry. Avoid using decongestants or antihistamines. Tonsillectomy may be necessary if you have several episodes of tonsillitis within a couple of years, or if there are complications from your tonsillitis. It's usually not needed. Call the doctor if there is no improvement in two days, or if you have difficulty breathing, increasing throat pain, high fever, rash, or frequent vomiting. SORE THROAT: Sore throats may be caused by viruses, bacteria, or fungi. Most are due to a virus, and must get better on their own. Bacterial sore throats, particularly those due to "strep," need treatment with antibiotics. If an antibiotic is prescribed, be sure to take the medication for a full 10 days. Failure to take the antibiotic can result in complications such as rheumatic fever. Sometimes, an injection of antibiotics is given instead of pills or liquid. This single "shot" is equal in effectiveness to the oral medication. To relieve symptoms, take acetaminophen for pain. Sip clear liquids frequently, or eat popsicles or ice chips. Anesthetic sprays or lozenges may help. Make sure the air in the room is not too dry. Avoid using decongestants or antihistamines. Call the doctor if there is no improvement in two days, or if you have difficulty breathing, increasing throat pain, high fever, rash, or frequent vomiting. Augmentin Augmentin is a mixture of amoxicillin and clavulanate. Amoxicillin is a member of the penicillin family. It covers the germs likely to cause ear, bronchial, and urinary infections better than plain penicillin. The addition of clavulanate allows it to cover staph infections of the skin, as well as resistant cases of ear and sinus infections. Your physician has chosen Augmentin for you because of the special nature of your situation. Augmentin is best taken with meals. Nausea after taking the medication is rare, but can occur. Diarrhea can occur, particularly in small children. Vaginal yeast infections, and oral thrush in infants are also common. Contact your physician if these problems occur. Allergy to penicillins is common. If you have had an allergic reaction to any drug of the penicillin family, you should never take any other penicillin. Notify your doctor at once if you develop hives, shortness of breath, swelling, or faintness. STEROID MEDICATION: You have been given a medicine of the cortisone/steroid class. This medication is used to control inflammation or allergy. It is usually only given for a short period of time, until the acute process subsides. There are usually no side effects from short-term use of cortisone-like medications. Some persons feel an increased sense of well-being and are not sleepy at bedtime. Long-term use of cortisone medications is best avoided, unless required for a severe condition. If your condition does not remit, or relapses after the course of corticosteroid medication, you should consult your physician. FOLLOW-UP CARE: If you have been referred to a physician for follow-up care, call the physician s office for an appointment as you were instructed or within the next two days. If you experience worsening or a significant change in your symptoms, notify the physician immediately or return to the Emergency Department at any time for re-evaluation. Forms: Elevated Blood Pressure Referrals: OCTAVIA GRANADOS DO [ASSOCIATE] - Follow up as needed
[2017-01-04 15:18] VITALS: BP 128/63
--- NOTE | 2017-01-09 20:17 | CONSULTATION REPORT E ---
Consultation Report NAME: TASHI ROWE : 1990 AGE: 26Y DATE: 01/04/2017 TO: OCTAVIA GRANADOS D.O. FROM: XAVIER ANDRADE Requesting Physician HISTORY OF PRESENT ILLNESS/SUBJECTIVE: This is a 26-year-old -[place] female who was seen and evaluated in the [facility] Emergency Room setting by ER staff. ENT was consulted due to the significant tonsillar hypertrophy and tonsillar asymmetry, especially with respect to the left tonsil. The patient had reported approximately 3 to 5 days of worsening sore throat symptoms. The patient has a history of chronic recurrent tonsillitis with antibiotics being prescribed multiple times each year over the years due to these episodes. The patient denies history of prior peritonsillar abscesses. At present, the patient denies difficulty with breathing or with shortness of breath. She reported being able to tolerate p.o. intake, but her throat hurt a lot. The ER staff had also ordered at CT neck imaging study with contrast to rule out peritonsillar abscess. The impression was for an enlarged left tonsil without intra or peritonsillar abscess findings noted. There was report of moderate pharyngeal airway narrowing and probable reactive cervical lymphadenopathy, left greater than right. ALLERGIES: No known drug allergies. SOCIAL HISTORY: Current everyday smoker. No drug abuse. No alcohol use. PAST MEDICAL HISTORY: Unremarkable except as noted above and reported musculoskeletal difficulty with sciatica. PAST SURGICAL HISTORY: Unremarkable. No history of bleeding or blood clotting disorders. FAMILY HISTORY: Remarkable for hypertension. REVIEW OF SYSTEMS: Same as above, otherwise, unremarkable. PHYSICAL EXAMINATION: VITALS: Temperature 98.1, pulse 88, respirations 18, blood pressure 128/73, pulse ox was 100% on room air. GENERAL APPEARANCE: Patient was alert and oriented x3 and in no apparent distress. She was able to speak without difficulty. HEAD: Normocephalic, atraumatic. EYES: Extraocular muscles intact and the conjunctivae were unremarkable in appearance. EARS: External auditory canals were clear, tympanic membranes were intact, and no middle ear effusions were noted. NOSE: With nasal septal deviation and inferior turbinate hypertrophy. ORAL CAVITY: With moist mucous membranes and the lips were unremarkable in appearance. Oropharynx: Tonsils were significantly enlarged with the left appearing 3 to 4+ in size and the right 2 to 3+ in size. Otherwise, there were no findings concerning for a peritonsillar abscess. The soft palate was redundant in nature and the uvula was elongated. NECK: The upper neck was tender to palpation on each side and otherwise there was no other obvious lymphadenopathy noted. THE FLEXIBLE FIBEROPTIC NASOPHARYNGOLARYNGOSCOPY WAS COMPLETED FOLLOWS: The patient was verbally consented for fiberoptic endoscopy which she was in agreement to proceed with. A flexible fiberoptic endoscope was introduced transnasally with no sinonasal polyps noted, the nasopharynx/christiano were unremarkable, the oropharynx was with asymmetric tonsil hypertrophy as noted above, the oropharynx/hypopharynx were otherwise widely patent, mild base of tongue fullness noted, the vocal cord were symmetric and mobile. IMAGING: CT neck with contrast completed 01/04/2017 with findings as noted above was reviewed and discussed with the patient. ASSESSMENT AND PLAN: 1. Acute recurrent tonsillitis. 2. Tonsillar hypertrophy. PROCEDURE: Nasopharyngolaryngoscopy. CPT Code 20332. DICTATING PHYSICIAN: OCTAVIA GRANADOS D.O. [id number] PHY#: [id number] ID: [id number] JOB#: [id number] ACCT: [id number] cc:OCTAVIA GRANADOS D.O. >
== END 2017-01-04 15:25 | disposition home or self-care (01) ==
LOC: ER 13:47
DX: J03.80 Acute tonsillitis due to other specified organisms (principal); B96.89 Other specified bacterial agents as the cause of diseases classified elsewhere; J02.9 Acute pharyngitis, unspecified; H92.02 Otalgia, left ear; R09.89 Other specified symptoms and signs involving the circulatory and respiratory systems; F17.200 Nicotine dependence, unspecified, uncomplicated
CPT/HCPCS: 99283

== ENCOUNTER 2017-07-25 14:16 | Emergency (ER) | payer SELFPAY ==
[2017-07-25] MEDS ORDERED: ACETAMINOPHEN 325 MG TABLET PO ONE (14:32)
[2017-07-25] MEDS ORDERED: KETOROLAC TROMETHAMINE INJ/PF 30 MG/1 ML SDV IV ONE (14:38)
[2017-07-25] MEDS ORDERED: ONDANSETRON HCL INJ/PF 4 MG/2 ML SDV IV ONE (14:38)
[2017-07-25] MEDS ORDERED: DEXAMETHASONE SOD PHOS INJ 10 MG/1 ML VIAL IV ONE (14:46)
--- NOTE | 2017-07-25 15:00 | ER Document Report ---
ED General - General Chief Complaint: Sore Throat Stated Complaint: VOMITING Time Seen by Provider: 07/25/17 14:32 Mode of Arrival: Ambulatory Information source: Patient Notes: 26-year-old female presents to ED for complaint of nausea vomiting general body aches sore throat fever chills decreased appetite and unable to keep any food or fluid down for 3 days. She states she has a history of having strep every year but usually she does not have the nausea and vomiting. She states she does not been taken her temperature she does know she has had a fever and is been sweating and chills for 3 days. She is alert and oriented with a temperature of 103 pulse 108 respirations 16 blood pressure 138/79 TRAVEL OUTSIDE OF THE [place] IN LAST 30 DAYS: No - HPI Onset: Other Onset/Duration: Gradual, Persistent, Worse Quality of pain: Sharp, Stabbing, Throbbing Severity: Severe Pain Level: 5 Associated symptoms: Body/muscle aches, Chills, Productive cough, Fever, Nausea , Vomiting, Sore throat Exacerbated by: Food Relieved by: Denies Similar symptoms previously: Yes Recently seen / treated by doctor: No - Related Data Allergies/Adverse Reactions: No Known Drug Allergies Allergy (Verified 07/25/17 14:17) Past Medical History - General Information source: Patient - Social History Smoking Status: Current Every Day Smoker Cigarette use (# per day): Yes - 1/2 ppd Chew tobacco use (# tins/day): No Smoking Education Provided: Yes - 4 min Frequency of alcohol use: Social Drug Abuse: Marijuana Lives with: Parents Family History: Hypertension, Other - Early I had stated that follow was on dialysis actually it is her mother that it was on dialysis and has since Patient has suicidal ideation: No Patient has homicidal ideation: No - Past Medical History Cardiac Medical History: Reports: None Pulmonary Medical History: Reports: None, Hx Bronchitis EENT Medical History: Reports: Throat Neurological Medical History: Reports: None Endocrine Medical History: Reports: None Renal/ Medical History: Reports: None Malignancy Medical History: Reports: None GI Medical History: Reports: None Musculoskeltal Medical History: Reports Hx Arthritis, Reports Hx Musculoskeletal Deformity - Sciatica Skin Medical History: Reports None Psychiatric Medical History: Reports: None Traumatic Medical History: Reports: None Infectious Medical History: Reports: None Surgical Hx: Negative Past Surgical History: Reports: None - Immunizations Immunizations up to date: Yes Hx Diphtheria, Pertussis, Tetanus Vaccination: Yes Review of Systems - Review of Systems Constitutional: Chills, Fever, Recent illness EENT: Throat pain, Difficulty swallowing Cardiovascular: No symptoms reported Gastrointestinal: Nausea, Vomiting Genitourinary: No symptoms reported Female Genitourinary: No symptoms reported Musculoskeletal: No symptoms reported Skin: No symptoms reported Hematologic/Lymphatic: No symptoms reported Neurological/Psychological: No symptoms reported -: Yes All other systems reviewed and negative Physical Exam - Vital signs Vitals: Temp Pulse Resp BP Pulse Ox 103.0 F H 104 H 16 138/79 H 99 07/25/17 14:25 07/25/17 14:25 07/25/17 14:25 07/25/17 14:25 07/25/17 14:25 Interpretation: Normal - General General appearance: Appears well, Alert - HEENT Head: Normocephalic, Atraumatic Eyes: Normal Pupils: PERRL Ears: Normal External canal: Normal Tympanic membrane: Normal Sinus: Normal Nasal: Swelling, Clear rhinorrhea Mouth/Lips: Normal Mucous membranes: Normal Pharynx: Erythema, Exudate, Post nasal drainage, Tonsillar hypertrophy - Left much larger than right Neck: Anterior cervical chain - Respiratory Respiratory status: No respiratory distress Chest status: Nontender Breath sounds: Normal Chest palpation: Normal - Cardiovascular Rhythm: Tachycardia Heart sounds: Normal auscultation Murmur: No - Abdominal Inspection: Normal Distension: No distension Bowel sounds: Normal Tenderness: Nontender Organomegaly: No organomegaly - Back Back: Normal, Nontender - Extremities General upper extremity: Normal inspection, Nontender, Normal color, Normal ROM , Normal temperature General lower extremity: Normal inspection, Nontender, Normal color, Normal ROM , Normal temperature, Normal weight bearing. No: Jorge's sign - Neurological Neuro grossly intact: Yes Cognition: Normal Orientation: AAOx4 Julita Coma Scale Eye Opening: Spontaneous Julita Coma Scale Verbal: Oriented Julita Coma Scale Motor: Obeys Commands [place] Coma Scale Total: 15 Speech: Normal Motor strength normal: LUE, RUE, LLE, RLE Sensory: Normal - Psychological Associated symptoms: Normal affect, Normal mood - Skin Skin Temperature: Warm Skin Moisture: Dry Skin Color: Normal Course - Re-evaluation Re-evalutation: 07/25/17 16:[address] Lange who came and examined the patient. He agreed that it looked like a peritonsillar abscess. He recommended calling [facility] to get a consult with a ears nose and throat specialist. [facility] transfer center line was called and I spoke with Dr. Avila from [facility] he recommended not doing a CT of soft tissue he stated he usually does not really help the diagnosis. He stated if she was improving and now able to swallow with the Toradol Decadron and antibiotics that the patient is stable to go home on clindamycin and steroid pack as long as he did not have any uvula deviation which she does not have. He recommended that she call the [facility] ENT office in [place] if she has any further complications with swallowing or increasing pain or fever. I consulted Dr. aLnge and he agreed with this treatment plan but that he recommends a CT soft tissue neck with contrast before sending her home. I have spoken with the patient and she agrees with this plan also is soon as she has finished her antibiotics and her IV fluids. 07/25/17 18:[address] scan with Dr. Lange. Then discussed the results with the patient. I explained to the patient that there was a moderate amount of oropharynx and hypopharyngeal airway narrowing with soft tissue swelling extending into the soft palate in the left side of the tongue. She does have a tonsillitis with no true tonsillar or peritonsillar abscess. He was offered a transfer to the [facility] for ENT to follow-up with her tonight. Patient stated she is ready to go home she is ready to eat she does not want to be transferred. I discussed patient's statements with Dr. Lange he stated that as long as she understands the results of the CAT scan as explained to her patient can be discharged home with prescriptions for prednisone and clindamycin and meloxicam. Patient is to call the ENT at [facility] in the morning to schedule a follow-up appointment. Discussed these conditions with the patient and she stated yes she wanted to go home and she would follow-up with ENT. I also explained to patient that if she has any increase in symptoms or any other concerns she is always welcome to come back to the emergency room tonight to be reevaluated. - Vital Signs Vital signs: Temp Pulse Resp BP Pulse Ox 98.8 F 75 16 132/75 H 100 07/25/17 19:13 05/15/18 19:13 07/25/17 19:13 07/25/17 19:13 07/25/17 19:13 - Laboratory Result Diagrams: 07/25/17 15:10 07/25/17 15:10 Laboratory results interpreted by me: 07/25/17 07/25/17 14:53 15:10 WBC 18.3 H RDW 14.3 H Seg Neuts % (Manual) 87 H Lymphocytes % (Manual) 4 L Abs Neuts (Manual) 15.9 H Abs Monocytes (Manual) 1.5 H Urine Protein 30 H Urine Blood SMALL H Urine Urobilinogen 4.0 H Ur Leukocyte Esterase SMALL H Urine Ascorbic Acid 40 H - Diagnostic Test Radiology reviewed: Image reviewed, Reports reviewed Discharge - Discharge Clinical Impression: Tonsillitis with exudate, Oropharyngeal airway narrowing, Hypopharyngeal airway narrowing Condition: Stable Disposition: HOME, SELF-CARE Additional Instructions: Tonsillitis Tonsillitis is infection of the tonsils. Symptoms include sore throat, difficulty swallowing, fever and aches, and tender lumps under the angle of the jaw. Tonsillitis can be caused by bacteria or viruses. Viral tonsillitis must get better on its own. Antibiotics don't help. The doctor may test for mononucleosis if symptoms last many days. We can only treat the symptoms. Bacterial tonsillitis is treated with antibiotics. It may take a few days before improvement occurs. It's important to take all the antibiotics. Take acetaminophen or ibuprofen for pain and fever. Sip frequent clear liquids, or use popsicles or ice chips. Anesthetic sprays or lozenges may help a little (the pain of tonsillitis is deep, and isn't helped much by numbing the surface). Make sure the air in the room is not too dry. Avoid using decongestants or antihistamines. Tonsillectomy may be necessary if you have several episodes of tonsillitis within a couple of years, or if there are complications from your tonsillitis. It's usually not needed. Call the doctor if there is no improvement in two days, or if you have difficulty breathing, increasing throat pain, high fever, rash, or frequent vomiting. Your CAT scan showed that there is moderate oral pharyngeal necks and hypopharyngeal airway narrowing. Be treated with anti-inflammatories antibiotics and steroids by prescription. It is very important that you call the ears nose and throat doctor tomorrow and schedule follow-up appointment. It is very important that you take your medications as prescribed and take the antibiotics until they are completed. Clindamycin You have been given a prescription for the antibiotic clindamycin. It is often prescribed for infections in the mouth, such as dental infections or abscesses, and for skin infections due to MRSA. It's important that you take all the medication, unless instructed otherwise by your physician. Failure to complete the entire course can result in relapse of your condition. Common side effects of antibiotics include nausea, intestinal cramping, or diarrhea. Women may develop vaginal yeast infections, and babies can get yeast (thrush) in the mouth following the use of antibiotics. Contact your physician if you develop significant side effects from this medication. Allergy to this antibiotic can result in hives, wheezing, faintness, or itching. If symptoms of allergy occur, stop the medication and call the doctor. Anti-Inflammatory Medication You have received a prescription for an antiinflammatory agent. This is an excellent, safe drug for pain control. In addition, it has potent antiinflammatory effects which are beneficial, especially in the treatment of injuries, arthritis, or tendonitis. It's best to take this medicine with food. Persons with ulcer disease or allergy to aspirin should notify their physician of this before taking this drug. Take the medication exactly as prescribed. Don't take additional doses unless instructed to do so by your doctor. If you develop wheezing, shortness of breath, hives, faintness, stomach pain, vomiting, or dark black stools, return for re-evaluation at once. STEROID MEDICATION: You have been given a medicine of the cortisone/steroid class. This medication is used to control inflammation or allergy. It is usually only given for a short period of time, until the acute process subsides. There are usually no side effects from short-term use of cortisone-like medications. Some persons feel an increased sense of well-being and are not sleepy at bedtime. Long-term use of cortisone medications is best avoided, unless required for a severe condition. If your condition does not remit, or relapses after the course of corticosteroid medication, you should consult your physician. FOLLOW-UP CARE: If you have been referred to a physician for follow-up care, call the physician s office for an appointment as you were instructed or within the next two days. If you experience worsening or a significant change in your symptoms, notify the physician immediately or return to the Emergency Department at any time for re-evaluation. [facility] [address] [facility] [address] [facility] Prescriptions: Clindamycin HCl 300 mg PO QID #28 capsule Meloxicam 7.5 mg PO DAILY #10 tablet Prednisone [Deltasone 20 mg Tablet] 3 tab PO DAILY 5 Days tablet Forms: Smoking Cessation Education
[2017-07-25] MEDS: NORMAL SALINE 1000 ML 1,000 ML IV PRN ×2 (15:10→15:51)
[2017-07-25 15:21] LABS: APPEARANCE,URINE CLOUDY; BILIRUBIN,URINE NEGATIVE (NEGATIVE); COLOR,URINE AMBER; GLUCOSE, URINE NEGATIVE (NEGATIVE); KETONES,URINE NEGATIVE (NEGATIVE); LEUKOCYTE ESTERASE,URINE SMALL (NEGATIVE); NITRITE,URINE NEGATIVE (NEGATIVE); PROTEIN,URINE 30 mg/dL (NEGATIVE); URINE SPECIFIC GRAVITY 1.027
[2017-07-25 15:27] LABS: HEMATOCRIT 39.7 % (36.0-47.0); MEAN CORPUSCULAR HEMOGLOBIN 28.4 pg (27.0-33.4); MEAN CORPUSCULAR HGB CONC 32.8 g/dL (32.0-36.0); MEAN CORPUSCULAR VOLUME 87 fl (80-97); PLATELET COUNT 276 10^3/uL (150-450); RED BLOOD COUNT 4.59 10^6/uL (3.72-5.28); RED CELL DISTRIBUTION WIDTH 14.3 % (11.5-14.0); WHITE BLOOD COUNT 18.3 10^3/uL (4.0-10.5)
[2017-07-25 15:42] LABS: ABSOLUTE LYMPHOCYTES# (MANUAL) 0.7 10^3/uL (0.5-4.7); ABSOLUTE MONOCYTES # (MANUAL) 1.5 10^3/uL (0.1-1.4); ABSOLUTE NEUTROPHILS# (MANUAL) 15.9 10^3/uL (1.7-8.2); BASOPHILS % (MANUAL) 0 % (0-2); EOSINOPHILS % (MANUAL) 1 % (0-6); LYMPHOCYTES % (MANUAL) 4 % (13-45); MONOCYTES % (MANUAL) 8 % (3-13); SEGMENTED NEUTROPHILS % (MAN) 87 % (42-78); TOTAL CELLS COUNTED 100
[2017-07-25] MEDS ORDERED: AMPICILLIN SOD/SULBACTAM 3 GM VIAL IV ONE (15:44)
[2017-07-25 15:45] LABS: ANISOCYTOSIS SLIGHT; PLATELET COMMENT ADEQUATE; TOXIC VACUOLATION PRESENT
[2017-07-25 15:49] LABS: ALANINE AMINOTRANSFERASE 26 U/L (9-52); ALBUMIN 4.3 g/dL (3.5-5.0); ALKALINE PHOSPHATASE 115 U/L (38-126); ANION GAP 13 (5-19); ASPARTATE AMINO TRANSFERASE 32 U/L (14-36); BILIRUBIN,DIRECT 0.3 mg/dL (0.0-0.4); BILIRUBIN,TOTAL 0.9 mg/dL (0.2-1.3); BLOOD UREA NITROGEN 10 mg/dL (7-20); CALCIUM 9.4 mg/dL (8.4-10.2); CARBON DIOXIDE 25 mmol/L (22-30); CHLORIDE 104 mmol/L (98-107); GLUCOSE 100 mg/dL (75-110); POTASSIUM 3.6 mmol/L (3.6-5.0); SODIUM 142.1 mmol/L (137-145); TOTAL PROTEIN 8.2 g/dL (6.3-8.2)
--- NOTE | 2017-07-25 17:23 | RADIOLOGY REPORT (SQ) ---
EXAM DESCRIPTION: CT SOFT TISSUE NECK WITH COMPLETED DATE/TIME: 07/25/2017 5:04 pm REASON FOR STUDY: fever,chills enlarged left tonsil, difficulty swal COMPARISON: CT soft tissue neck 01/04/2017, 10/11/2015 TECHNIQUE: Post IV contrasted scanning from skull base through lung apices with review of bone, soft tissue and lung windows. Reconstructed coronal and sagittal MPR images reviewed. All images stored on PACS. All CT scanners at this facility use dose modulation, iterative reconstruction, and/or weight based d osing when appropriate to reduce radiation dose to as low as reasonably achievable (ALARA). [facility]: Dose Right [facility]: CareDose [facility]: Dose Right [facility]: Teradose 4D [facility]: RORE MEDIA CONTRAST TYPE AND DOSE: 75 mL of IV Isovue 370- low osmolar. RENAL FUNCTION: Creatinine 0.82 RADIATION DOSE: 15 mGy . LIMITATIONS: Streak artifact from metallic dental work FINDINGS: The left pharyngeal tonsil is diffusely enlarged, measuring 4 cm craniocaudad by 2.3 cm tr ansverse by 3.5 cm AP. There is no discrete intra tonsillar the abscess or peritonsillar abscess. T here is bulging of the tonsil into the mer and hypopharynx causing moderate airway narrowing. There is asymmetric swelling along the left soft palate. Asymmetric swelling of the left lingual ton sillar tissue is present. Right pharyngeal tonsil is normal size without evidence of intra tonsillar or peritonsillar abscess. There is no prevertebral phlegmon. SKULL BASE: Inferior brain parenchyma in the field of view is unremarkable. MAJOR SALIVARY GLANDS: No solid or cystic masses. No inflammatory changes. LYMPHADENOPATHY: Mild cervical adenopathy with mildly enlarged carotid space and posterior triangle l ymph nodes. MUCOSAL MASSES OR ASYMMETRY: As above LARYNX/CORDS: No abnormal findings. VASCULAR STRUCTURES: The major vessels are patent. LUNG APICES: Clear. BONES: Intact. THYROID: Normal size. No masses. PARANASAL SINUSES: Mucous retention cysts in the right sphenoid and left maxillary sinuses OTHER: No other significant finding. IMPRESSION: Left-sided tonsillitis with diffuse enlargement of the pharyngeal tonsil. There is mode rate oropharynx and hypopharyngeal airway narrowing. The soft tissue swelling extends into the left mills half of the soft palate and left tongue base lingual tonsil tissue. No intra tonsillar or perit onsillar abscess TECHNICAL DOCUMENTATION: JOB ID: [id number] Quality ID # [id number]: Final reports with documentation of one or more dose reduction techniques (e.g., Au tomated exposure control, adjustment of the mA and/or kV according to patient size, use of iterative reconstruction technique) 2010 [employer]- All Rights Reserved Reading location - IP/workstation name: [email or web address] [id number]
[2017-07-25 19:14] VITALS: BP 132/75
== END 2017-07-25 19:05 | disposition home or self-care (01) ==
LOC: ER 14:16
DX: J03.90 Acute tonsillitis, unspecified (principal); R11.2 Nausea with vomiting, unspecified; M79.1 Myalgia; R50.9 Fever, unspecified; Q38.8 Other congenital malformations of pharynx
CPT/HCPCS: 99284; 96361; 96375; 96365; 36415; 87040; 87070; 87086; 87880; 84703; 85025; 87077; 86308; 80053; 81001; 87186; 83605; 70491; J0295; J1885; J2405; J7030; J1100

== ENCOUNTER 2017-07-27 | Emergency (ER) | payer SELFPAY | END 2017-07-27 14:25 | disposition left against medical advice (07) | DX: Z53.21 Procedure and treatment not carried out due to patient leaving prior to being seen by health care provider (principal) ==

== ENCOUNTER 2017-12-31 14:37 | Emergency (ER) | payer SELFPAY ==
[2017-12-31 14:52] VITALS: BP 122/81
--- NOTE | 2017-12-31 15:00 | ER Document Report ---
ED Medical Screen (RME) - General Chief Complaint: OB Problem (<20wks) Stated Complaint: FEVER,NAUSEA Time Seen by Provider: 12/31/17 14:53 Mode of Arrival: Ambulatory Information source: Patient TRAVEL OUTSIDE OF THE [place] IN LAST 30 DAYS: No - HPI Patient complains to provider of: Onset: Other - 27-year-old female that presents for pelvic cramping nausea in the setting of a new test which was positive today. She is never been in the past. Denies any health problems is a cigarette smoker does drink alcohol. - Related Data Allergies/Adverse Reactions: No Known Drug Allergies Allergy (Verified 07/25/17 14:17) Past Medical History Pulmonary Medical History: Reports: Hx Bronchitis Endocrine Medical History: Denies: Hx Diabetes Mellitus Type 1, Hx Diabetes Mellitus Type 2 Renal/ Medical History: Denies: Hx Peritoneal Dialysis Musculoskeltal Medical History: Reports Hx Arthritis, Reports Hx Musculoskeletal Deformity - Sciatica - Immunizations Immunizations up to date: Yes Hx Diphtheria, Pertussis, Tetanus Vaccination: Yes Physical Exam - Vital signs Vitals: Temp Pulse Resp BP Pulse Ox 98.1 F 77 18 122/81 100 12/31/17 14:49 12/31/17 14:49 12/31/17 14:49 12/31/17 14:49 12/31/17 14:49 Course - Re-evaluation Re-evalutation: 27-year-old female. 12/31/17 14:59 I have greeted and performed a rapid initial assessment of this patient. A comprehensive ED assessment and evaluation of the patient, analysis of test results and completion of the medical decision making process will be conducted by additional ED providers - Vital Signs Vital signs: Temp Pulse Resp BP Pulse Ox 98.1 F 77 18 122/81 100 12/31/17 14:49 12/31/17 14:49 12/31/17 14:49 12/31/17 14:49 12/31/17 14:49
[2017-12-31 15:47] LABS: APPEARANCE,URINE SLIGHTLY-CLOUDY; BILIRUBIN,URINE NEGATIVE (NEGATIVE); COLOR,URINE AMBER; GLUCOSE, URINE NEGATIVE (NEGATIVE); KETONES,URINE NEGATIVE (NEGATIVE); LEUKOCYTE ESTERASE,URINE NEGATIVE (NEGATIVE); NITRITE,URINE NEGATIVE (NEGATIVE); PROTEIN,URINE 30 mg/dL (NEGATIVE); URINE SPECIFIC GRAVITY 1.033
== END 2017-12-31 17:20 | disposition left against medical advice (07) ==
LOC: ER 14:37
DX: Z53.21 Procedure and treatment not carried out due to patient leaving prior to being seen by health care provider (principal); O26.891 Other specified pregnancy related conditions, first trimester; R10.2 Pelvic and perineal pain; F17.210 Nicotine dependence, cigarettes, uncomplicated; Z72.89 Other problems related to lifestyle
CPT/HCPCS: 36415; 81001; 84702; 87086; 99281

== ENCOUNTER 2018-01-10 13:28 | Emergency (ER) | payer OTHER ==
[2018-01-10] MEDS ORDERED: ACETAMINOPHEN 325 MG TABLET PO ONE (14:11)
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
[2018-01-10 14:47] LABS: APPEARANCE,URINE SLIGHTLY-CLOUDY; BILIRUBIN,URINE NEGATIVE (NEGATIVE); COLOR,URINE YELLOW; GLUCOSE, URINE NEGATIVE (NEGATIVE); KETONES,URINE NEGATIVE (NEGATIVE); LEUKOCYTE ESTERASE,URINE NEGATIVE (NEGATIVE); NITRITE,URINE NEGATIVE (NEGATIVE); PROTEIN,URINE NEGATIVE (NEGATIVE); URINE SPECIFIC GRAVITY 1.027; UROBILINOGEN,URINE NEGATIVE mg/dL (<2.0)
--- NOTE | 2018-01-10 15:49 | RADIOLOGY REPORT (SQ) ---
EXAM DESCRIPTION: U/S [id number] TRNABD 1GES W/ODOP COMPLETED DATE/TIME: 01/10/2018 3:23 pm REASON FOR STUDY: low back pain COMPARISON: None. TECHNIQUE: Transabdominal static and realtime grayscale images acquired of the pelvis. Additional se lected spectral and color Doppler images recorded. All images stored on PACs. bHCG: Not available. CLINICAL DATES: 8 week 4 day. LIMITATIONS: None. FINDINGS: FETUS: Single Living intrauterine . ULTRASOUND EGA: 9 week 3 day. ULTRASOUND LYDIA: 08/12/2018. EFW: Not applicable less than 20 weeks. CRL: 2.7 cm. FHR: 175 beats per minute. SURVEY: No visualized anomalies. AMNIOTIC FLUID: Adequate amount. PLACENTA: Not yet developed due to early gestation. SUBCHORIONIC BLEED: No. SIZE OF BLEED: Not applicable. UTERUS: No masses. No anomalies. CERVICAL LENGTH: 2.2 cm. Closed. RIGHT ADNEXA: Normal ovary with normal vascular flow. No adnexal free fluid. No adnexal masses. LEFT ADNEXA: Ovary not identified due to poor acoustical window. No adnexal free fluid. No adnexal masses. FREE FLUID: None. OTHER: No other significant finding. IMPRESSION: LIVING INTRAUTERINE . EGA 9 WEEK 3 DAY. Trimester of : First - 0 to 13 weeks. TECHNICAL DOCUMENTATION: JOB ID: [id number] Service Route- All Rights Reserved rev Reading location - IP/workstation name: [facility]
[2018-01-10 16:24] VITALS: BP 128/85
== END 2018-01-10 16:24 | disposition home or self-care (01) ==
LOC: ER 13:28
DX: O99.89 Other specified diseases and conditions complicating pregnancy, childbirth and the puerperium (principal); M54.5 Low back pain; V49.50XA Passenger injured in collision with unspecified motor vehicles in traffic accident, initial encounter; O99.330 Smoking (tobacco) complicating pregnancy, unspecified trimester; Z3A.00 Weeks of gestation of pregnancy not specified
CPT/HCPCS: 36415; 76801; 81001; 84702; 86900; 86901; 99284

== ENCOUNTER 2018-03-09 09:47 | Emergency (ER) | payer MEDICAID, OTHER ==
[2018-03-09] MEDS ORDERED: ONDANSETRON HCL INJ/PF 4 MG/2 ML SDV IV ONE (10:06)
--- NOTE | 2018-03-09 10:08 | ER Document Report ---
ED Medical Screen (RME) - General Chief Complaint: Nausea/Vomiting Stated Complaint: VOMITING/FEVER/SORE THROAT Time Seen by Provider: 03/09/18 10:05 Notes: Patient is having congestion and cough and cold and sore throat and she is been vomiting for the past 2 days. She says she is vomited at least 10 times in the past day. No blood seen. Patient is 16 weeks , first . Not running any fevers. No diarrhea. No other significant past medical history. TRAVEL OUTSIDE OF THE [place] IN LAST 30 DAYS: No - Related Data Allergies/Adverse Reactions: No Known Drug Allergies Allergy (Verified 03/09/18 09:50) Past Medical History Pulmonary Medical History: Reports: Hx Bronchitis Endocrine Medical History: Denies: Hx Diabetes Mellitus Type 1, Hx Diabetes Mellitus Type 2 Renal/ Medical History: Denies: Hx Peritoneal Dialysis Musculoskeltal Medical History: Reports Hx Arthritis, Reports Hx Musculoskeletal Deformity - Sciatica - Immunizations Immunizations up to date: Yes Hx Diphtheria, Pertussis, Tetanus Vaccination: Yes Physical Exam - Vital signs Vitals: Temp Pulse Resp BP Pulse Ox 98.5 F 81 16 117/83 100 03/09/18 09:52 03/09/18 09:52 03/09/18 09:52 03/09/18 09:52 03/09/18 09:52 Course - Vital Signs Vital signs: Temp Pulse Resp BP Pulse Ox 98.5 F 81 16 117/83 100 03/09/18 09:52 03/09/18 09:52 03/09/18 09:52 03/09/18 09:52 03/09/18 09:52
[2018-03-09] MEDS: NORMAL SALINE 1000 ML 1,000 ML IV PRN ×2 (10:21→12:00)
[2018-03-09 10:42] LABS: ABSOLUTE BASOPHILS # (AUTO) 0.1 10^3/uL (0.0-0.2); ABSOLUTE EOSINOPHILS # (AUTO) 0.2 10^3/uL (0.0-0.6); ABSOLUTE LYMPHOCYTES (AUTO) 1.5 10^3/uL (0.5-4.7); ABSOLUTE MONOCYTES (AUTO) 0.6 10^3/uL (0.1-1.4); BASOPHILS % (AUTO) 0.9 % (0-2); EOSINOPHILS % (AUTO) 2.8 % (0-6); HEMOGLOBIN 10.9 g/dL (12.0-15.5); LYMPHOCYTES % (AUTO) 19.8 % (13-45); MEAN CORPUSCULAR HEMOGLOBIN 29.1 pg (27.0-33.4); MEAN CORPUSCULAR HGB CONC 34.1 g/dL (32.0-36.0); MEAN CORPUSCULAR VOLUME 86 fl (80-97); MONOCYTES % (AUTO) 8.2 % (3-13); PLATELET COUNT 274 10^3/uL (150-450); RED BLOOD COUNT 3.75 10^6/uL (3.72-5.28); RED CELL DISTRIBUTION WIDTH 14.2 % (11.5-14.0); SEGMENTED NEUTROPHILS % (AUTO) 68.3 % (42-78); TOTAL CELLS COUNTED % (AUTO) 100 %; WHITE BLOOD COUNT 7.4 10^3/uL (4.0-10.5)
[2018-03-09 11:01] LABS: ALANINE AMINOTRANSFERASE 27 U/L (9-52); ALBUMIN 3.7 g/dL (3.5-5.0); ALKALINE PHOSPHATASE 56 U/L (38-126); ANION GAP 7 (5-19); ASPARTATE AMINO TRANSFERASE 25 U/L (14-36); BILIRUBIN,DIRECT 0.1 mg/dL (0.0-0.4); BILIRUBIN,TOTAL 0.5 mg/dL (0.2-1.3); BLOOD UREA NITROGEN 11 mg/dL (7-20); CALCIUM 9.4 mg/dL (8.4-10.2); CARBON DIOXIDE 28 mmol/L (22-30); CHLORIDE 102 mmol/L (98-107); GLUCOSE 80 mg/dL (75-110); LIPASE 31.3 U/L (23-300)
[2018-03-09 12:24] LABS: AMORPHOUS SEDIMENT,URINE TRACE /HPF; APPEARANCE,URINE CLOUDY; BILIRUBIN,URINE NEGATIVE (NEGATIVE); COLOR,URINE YELLOW; GLUCOSE, URINE NEGATIVE (NEGATIVE); KETONES,URINE TRACE mg/dL (NEGATIVE); LEUKOCYTE ESTERASE,URINE SMALL (NEGATIVE); NITRITE,URINE NEGATIVE (NEGATIVE); PROTEIN,URINE NEGATIVE (NEGATIVE); UROBILINOGEN,URINE NEGATIVE mg/dL (<2.0)
--- NOTE | 2018-03-09 13:14 | ER Document Report ---
ED General - General Chief Complaint: Nausea/Vomiting Stated Complaint: VOMITING/FEVER/SORE THROAT Time Seen by Provider: 03/09/18 10:05 TRAVEL OUTSIDE OF THE [place] IN LAST 30 DAYS: No - HPI Patient complains to provider of: Fevers nausea vomiting feeling unwell Notes: Patient coming in for evaluation of fevers nausea vomiting feeling unwell. Patient states ongoing for greater than 48 hours. Patient also complains of nasal congestion. Patient is approximately 16 weeks . Patient states she is compliant with her vitamins has follows with RESEARCH PROJECT MANAGER showi ng an IUP. Patient denies any abdominal pain dysuria or diarrhea. Patient upon my evaluation is resting comfortably denies any past medical history denies any allergies to medications. Denies any recent antibiotics denies any recent travel or sick contacts. - Related Data Allergies/Adverse Reactions: No Known Drug Allergies Allergy (Verified 03/09/18 09:50) Past Medical History - Social History Smoking Status: Current Every Day Smoker Chew tobacco use (# tins/day): No Frequency of alcohol use: None Drug Abuse: None Family History: Hypertension, Other - Early I had stated that follow was on dialysis actually it is her mother that it was on dialysis and has since Patient has suicidal ideation: No Patient has homicidal ideation: No Pulmonary Medical History: Reports: Hx Bronchitis Endocrine Medical History: Denies: Hx Diabetes Mellitus Type 1, Hx Diabetes Mellitus Type 2 Renal/ Medical History: Denies: Hx Peritoneal Dialysis Musculoskeletal Medical History: Reports Hx Arthritis, Reports Hx Musculoskeletal Deformity - Sciatica - Immunizations Immunizations up to date: Yes Hx Diphtheria, Pertussis, Tetanus Vaccination: Yes Review of Systems - Review of Systems Constitutional: Fever EENT: No symptoms reported Cardiovascular: No symptoms reported Respiratory: No symptoms reported Gastrointestinal: Nausea, Vomiting Genitourinary: No symptoms reported Female Genitourinary: No symptoms reported Musculoskeletal: No symptoms reported Skin: No symptoms reported Hematologic/Lymphatic: No symptoms reported Neurological/Psychological: No symptoms reported -: Yes All other systems reviewed and negative Physical Exam - Vital signs Vitals: Temp Pulse Resp BP Pulse Ox 98.5 F 81 16 117/83 100 03/09/18 09:52 03/09/18 09:52 03/09/18 09:52 03/09/18 09:52 03/09/18 09:52 Interpretation: Normal - General General appearance: Appears well, Alert - HEENT Head: Normocephalic, Atraumatic Eyes: Normal Pupils: PERRL - Respiratory Respiratory status: No respiratory distress Chest status: Nontender Breath sounds: Normal Chest palpation: Normal - Cardiovascular Rhythm: Regular Heart sounds: Normal auscultation Murmur: No - Abdominal Inspection: Normal, Gravid female Distension: No distension Bowel sounds: Normal Tenderness: Nontender Organomegaly: No organomegaly - Back Back: Normal, Nontender - Extremities General upper extremity: Normal inspection, Nontender, Normal color, Normal ROM, Normal temperature General lower extremity: Normal inspection, Nontender, Normal color, Normal ROM, Normal temperature, Normal weight bearing. No: Jorge's sign - Neurological Neuro grossly intact: Yes Cognition: Normal Orientation: AAOx4 Julita Coma Scale Eye Opening: Spontaneous Julita Coma Scale Verbal: Oriented [place] Coma Scale Motor: Obeys Commands [place] Coma Scale Total: 15 Speech: Normal Motor strength normal: LUE, RUE, LLE, RLE Sensory: Normal - Psychological Associated symptoms: Normal affect, Normal mood - Skin Skin Temperature: Warm Skin Moisture: Dry Skin Color: Normal Course - Re-evaluation Re-evalutation: 03/09/18 15:15 Laboratory studies not show any critical pathology. Patient feeling better after IV fluids urinalysis not showing signs of urinary tract infection bedside ultrasound does show signs of an IUP positive motion heart rate is 150. Patient will be given a prescription for Reglan for her nausea vomiting information for zxfr-jey-kofrstd treatments were also given to the patient patient encouraged follow-up with [employer] PROJECT MANAGER. - Vital Signs Vital signs: Temp Pulse Resp BP Pulse Ox 99.2 F 85 16 121/79 100 03/09/18 13:30 03/09/18 13:30 03/09/18 09:52 03/09/18 13:30 03/09/18 13:30 - Laboratory Result Diagrams: 03/09/18 10:19 03/09/18 10:19 Laboratory results interpreted by me: 03/09/18 03/09/18 03/09/18 10:19 10:19 12:05 Hgb 10.9 L Hct 32.0 L RDW 14.2 H Creatinine 0.48 L Urine Ketones TRACE H Ur Leukocyte Esterase SMALL H Discharge - Discharge Clinical Impression: Nausea and vomiting during prior to 22 weeks gestation, Nasal congestion Condition: Good Disposition: HOME, SELF-CARE Instructions: (OM), Reglan (OM), Vomiting (OM) Additional Instructions: Your evaluation does not show any signs of infection or other significant pathology. Your heart rate was 150 which is normal for you refuses. I will highly recommend she continue your vitamins take the Reglan as prescribed for nausea may read below for further afgy-zcy-ttlmkph information for nausea control. You have been seen for vomiting during . You should continue to drink plenty of water and consider taking a solution such as Pedialyte if your having difficulty eating food. Please return if you become unable to drink any fluids for more than 12 hours, urinate less than twice a day, pass out, or have any other symptoms that are concerning to you. For nausea and vomiting during I recomment: Start with 10-12.5 mg of pyridoxine (vitamin B6) three times a day for 2 days. If not fully effective, Increase to 12.5 mg of pyridoxine four times a day for 2 days. If not fully effective, Increase to 25 mg of pyridoxine three times a day for 2 days. If not fully effective, Continue 25 mg pyridoxine 3 times a day, and add 12.5 mg of doxylamine before bedtime each day for 2 days. If not fully effective, Continue 25 mg pyridoxine 3 times a day, and take 12.5 mg of doxylamine twice a day. If not fully effective, Continue 25 mg pyridoxine 3 times a day, and take 12.5 mg of doxylamine three times a day. If not fully effective, Continue 25 mg pyridoxine 3 times a day, and 12.5 mg of doxylamine 3 times a day, while adding Emetrol, one to two tablespoons (15-30 cc) taken once or twice a day as needed. (Emetrol is an zkfr-dhc-dezndrk mixture of sugar syrups and phosphoric acid ) that acts by soothing the actual wall of the gastrointestinal tract). If not fully effective, Consult with your doctor. Prescriptions: Metoclopramide HCl [Reglan] 5 mg PO Q6 #30 tablet Forms: Return to Work
[2018-03-09 13:32] VITALS: BP 121/79
== END 2018-03-09 13:38 | disposition home or self-care (01) ==
LOC: ER 09:47
DX: O21.8 Other vomiting complicating pregnancy (principal); O99.332 Smoking (tobacco) complicating pregnancy, second trimester; Z3A.16 16 weeks gestation of pregnancy
CPT/HCPCS: 99283; 96361; 96374; 36415; 83690; 85025; 80053; 81001; J2405; J7030

== ENCOUNTER 2018-04-09 14:24 | Outpatient (CLI) | payer MEDICAID ==
[2018-04-09 15:19] LABS: BACTERIA (WET MOUNT) 4+ BACTERIA SEEN; EPITHELIALS (WET MOUNT) 3+ EPITHELIALS SEEN; T.VAGINALIS (WET MOUNT) NO TRICHOMONAS SEEN; WBCS (WET MOUNT) 1+ WBCS SEEN; YEAST (WET MOUNT) BUDDING YEAST SEEN
[2018-04-09 15:29] LABS: APPEARANCE,URINE SLIGHTLY-CLOUDY; BILIRUBIN,URINE NEGATIVE (NEGATIVE); COLOR,URINE YELLOW; GLUCOSE, URINE NEGATIVE (NEGATIVE); KETONES,URINE TRACE mg/dL (NEGATIVE); LEUKOCYTE ESTERASE,URINE TRACE (NEGATIVE); NITRITE,URINE NEGATIVE (NEGATIVE); PROTEIN,URINE NEGATIVE (NEGATIVE); URINE SPECIFIC GRAVITY 1.028
[2018-04-09] MEDS ORDERED: MAG HYDROX/AL HYDROX/SIMETH SUSP 30 ML UDCUP ONE (16:11)
[2018-04-09] MEDS ORDERED: FLUCONAZOLE 100 MG TABLET PO ONE (16:13)
[2018-04-09] MEDS ORDERED: MAG HYDROX/AL HYDROX/SIMETH SUSP 30 ML UDCUP PO PRN (16:13)
[2018-04-09 16:14] LABS: URINE AMPHETAMINES SCREEN NEGATIVE; URINE BARBITURATES SCREEN NEGATIVE; URINE BENZODIAZEPINES SCREEN NEGATIVE; URINE METHADONE SCREEN NEGATIVE
[2018-04-09] MEDS ORDERED: DEXTROSE 5%-LACTATED RINGERS 1,000 ML IV PRN (16:15)
[2018-04-09 16:21] LABS: URINE PHENCYCLIDINE SCREEN NEGATIVE
[2018-04-09 16:28] LABS: URINE COCAINE SCREEN UNCONFIRMED POSITIVE; URINE MARIJUANA (THC) SCREEN UNCONFIRMED POSITIVE
[2018-04-09 16:37] LABS: CHLAM PCR NOT DETECTED (NOT DETECT); GON PCR NOT DETECTED (NOT DETECT)
[2018-04-10] MEDS ORDERED: FLUCONAZOLE 100 MG TABLET PO ONE (16:45)
== END 2018-04-09 18:00 | disposition home or self-care (01) ==
LOC: LC 14:24
PROVIDERS: ATTEND Obstetrics & Gynecology
PROC: 4A1HXCZ Monitoring of Products of Conception, Cardiac Rate, External Approach (ICD-10-PCS; principal; 2018-04-09)
DX: O98.812 Other maternal infectious and parasitic diseases complicating pregnancy, second trimester (principal); B37.9 Candidiasis, unspecified; O99.282 Endocrine, nutritional and metabolic diseases complicating pregnancy, second trimester; E86.0 Dehydration; R11.2 Nausea with vomiting, unspecified; O99.332 Smoking (tobacco) complicating pregnancy, second trimester; F17.210 Nicotine dependence, cigarettes, uncomplicated; Z3A.27 27 weeks gestation of pregnancy
CPT/HCPCS: 59899; 87210; 81001; 80307; 80353; 87491; 87591; G0480 ×3; J3490; 80349

== ENCOUNTER 2018-07-03 11:12 | Outpatient (CLI) | payer MEDICAID ==
[2018-07-03] MEDS ORDERED: RINGERS SOLUTION,LACTATED 1,000 ML IV ONE (11:24)
[2018-07-03 11:52] LABS: APPEARANCE,URINE SLIGHTLY-CLOUDY; BILIRUBIN,URINE NEGATIVE (NEGATIVE); COLOR,URINE YELLOW; GLUCOSE, URINE NEGATIVE (NEGATIVE); KETONES,URINE NEGATIVE (NEGATIVE); LEUKOCYTE ESTERASE,URINE SMALL (NEGATIVE); NITRITE,URINE NEGATIVE (NEGATIVE); PROTEIN,URINE NEGATIVE (NEGATIVE); URINE SPECIFIC GRAVITY 1.013
[2018-07-03] MEDS ORDERED: ONDANSETRON HCL INJ/PF 4 MG/2 ML SDV ONE (11:53)
[2018-07-03] MEDS ORDERED: ONDANSETRON HCL INJ/PF 4 MG/2 ML SDV IV ONE (11:54)
--- NOTE | 2018-07-03 11:56 | Progress Note ---
Provider Note Provider Note: counseled on cocaine use in including risk of and maternal .
[2018-07-03 12:06] LABS: URINE AMPHETAMINES SCREEN NEGATIVE; URINE BARBITURATES SCREEN NEGATIVE; URINE BENZODIAZEPINES SCREEN NEGATIVE; URINE METHADONE SCREEN NEGATIVE; URINE PHENCYCLIDINE SCREEN NEGATIVE
[2018-07-03 12:08] LABS: URINE COCAINE SCREEN UNCONFIRMED POSITIVE; URINE MARIJUANA (THC) SCREEN UNCONFIRMED POSITIVE
--- NOTE | 2018-07-03 12:48 | Non Stress Test Report ---
Non Stress Test Datetime Report Generated by CPN: 07/03/2018 12:48 DEMOGRAPHIC EGA NST: 34.2 INDICATION Indication for Study: Other Indication for Study (NST) Other: LC MONITORING Monitor Explained: Monitor Explained; Test Explained; Patient Verbalized Understanding Time on Monitor: 07/03/2018 11:32 Time off Monitor: 07/03/2018 12:40 Time off Monitor: 07/03/2018 12:40 NST Duration: 68 NST INTERVENTIONS NST Interventions: PO Hydration; IV Fluids Physician Notified NST: A. Cherry CNM BABY A: [id number] BABY A Movement : Present Contraction Frequency : rare FHR Baseline : 130 Accelerations : 15X15 Decelerations : None Variability : Moderate 6-25bpm NST Review: Meets Criteria for Reactive NST NST Review and Verified By : ALEX Gonzalez Results: Reactive NST REPORT Report Trigger: Send Report
== END 2018-07-03 12:52 | disposition home or self-care (01) ==
LOC: LC 11:12
PROVIDERS: ATTEND Obstetrics & Gynecology
PROC: 4A1HXCZ Monitoring of Products of Conception, Cardiac Rate, External Approach (ICD-10-PCS; principal; 2018-07-03)
DX: O47.03 False labor before 37 completed weeks of gestation, third trimester (principal); Z3A.34 34 weeks gestation of pregnancy
CPT/HCPCS: 59025; 87086; 81005; 80307; 80353; 84112; G0480 ×3; J2405; 80349

== ENCOUNTER 2018-08-06 14:49 | Outpatient (CLI) | payer MEDICAID ==
--- NOTE | 2018-08-06 15:49 | Non Stress Test Report ---
Non Stress Test Datetime Report Generated by CPN: 08/06/2018 15:49 DEMOGRAPHIC Test Number: 2 EGA NST: 39.1 INDICATION Indication for Study: Ordered by Provider; Other Indication for Study (NST) Other: scheduled NST /office closed MONITORING Monitor Explained: Monitor Explained; Test Explained; Patient Verbalized Understanding Time on Monitor: 08/06/2018 15:02 Time off Monitor: 08/06/2018 15:34 NST Duration: 32 NST INTERVENTIONS NST Interventions: PO Hydration BABY A: [id number] BABY A Movement : Present Contraction Frequency : Irregular FHR Baseline : 135 Accelerations : 15X15 Decelerations : None Variability : Moderate 6-25bpm NST Review: Meets Criteria for Reactive NST NST Review and Verified By : Hyun Bennett RN NST Results: Reactive NST REPORT Report Trigger: Send Report
[2018-08-06 15:56] LABS: APPEARANCE,URINE CLOUDY; BILIRUBIN,URINE NEGATIVE (NEGATIVE); COLOR,URINE AMBER; GLUCOSE, URINE NEGATIVE (NEGATIVE); KETONES,URINE NEGATIVE (NEGATIVE); LEUKOCYTE ESTERASE,URINE MODERATE (NEGATIVE); NITRITE,URINE NEGATIVE (NEGATIVE); PROTEIN,URINE 30 mg/dL (NEGATIVE); URINE SPECIFIC GRAVITY 1.025
[2018-08-06 16:14] LABS: URINE AMPHETAMINES SCREEN NEGATIVE; URINE BARBITURATES SCREEN NEGATIVE; URINE BENZODIAZEPINES SCREEN NEGATIVE; URINE METHADONE SCREEN NEGATIVE; URINE PHENCYCLIDINE SCREEN NEGATIVE
[2018-08-06 16:18] LABS: URINE COCAINE SCREEN UNCONFIRMED POSITIVE; URINE MARIJUANA (THC) SCREEN UNCONFIRMED POSITIVE
== END 2018-08-06 15:40 | disposition home or self-care (01) ==
LOC: LC 14:49
PROVIDERS: ATTEND Student in an Organized Health Care Education/Training Program
PROC: 4A1HXCZ Monitoring of Products of Conception, Cardiac Rate, External Approach (ICD-10-PCS; principal; 2018-08-06)
DX: Z34.93 Encounter for supervision of normal pregnancy, unspecified, third trimester (principal)
CPT/HCPCS: 59025; 80307; 81001

== ENCOUNTER 2018-08-11 00:51 | Outpatient (CLI) | payer MEDICAID ==
[2018-08-11 01:39] LABS: APPEARANCE,URINE SLIGHTLY-CLOUDY; BILIRUBIN,URINE NEGATIVE (NEGATIVE); GLUCOSE, URINE NEGATIVE (NEGATIVE); KETONES,URINE 20 mg/dL (NEGATIVE); LEUKOCYTE ESTERASE,URINE LARGE (NEGATIVE); NITRITE,URINE NEGATIVE (NEGATIVE); PROTEIN,URINE 30 mg/dL (NEGATIVE); URINE SPECIFIC GRAVITY 1.024
[2018-08-11 01:45] LABS: COLOR,URINE YELLOW
[2018-08-11 02:05] LABS: URINE AMPHETAMINES SCREEN NEGATIVE; URINE BARBITURATES SCREEN NEGATIVE; URINE BENZODIAZEPINES SCREEN NEGATIVE; URINE METHADONE SCREEN NEGATIVE; URINE PHENCYCLIDINE SCREEN NEGATIVE
[2018-08-11 02:08] LABS: URINE COCAINE SCREEN UNCONFIRMED POSITIVE; URINE MARIJUANA (THC) SCREEN UNCONFIRMED POSITIVE
--- NOTE | 2018-08-12 07:16 | Non Stress Test Report ---
Non Stress Test Datetime Report Generated by CPN: 08/12/2018 07:15 DEMOGRAPHIC EGA NST: 39.6 INDICATION Indication for Study (NST) Other: labor check MONITORING Monitor Explained: Monitor Explained; Test Explained; Patient Verbalized Understanding Time on Monitor: 08/11/2018 01:14 NST INTERVENTIONS NST Interventions: PO Hydration Physician Notified NST: Younger BABY A: [id number] BABY A Movement : Present Contraction Frequency : 4-6.5 FHR Baseline : 125 Accelerations : 15X15 Decelerations : None Variability : Moderate 6-25bpm NST Review: Meets Criteria for Reactive NST NST Review and Verified By : Rafi Fuentes RN Results: Reactive NST REPORT Report Trigger: Send Report
== END 2018-08-11 02:35 | disposition home or self-care (01) ==
LOC: LC 00:51
PROVIDERS: ATTEND Obstetrics & Gynecology
PROC: 4A1HXCZ Monitoring of Products of Conception, Cardiac Rate, External Approach (ICD-10-PCS; principal; 2018-08-11)
DX: O47.1 False labor at or after 37 completed weeks of gestation (principal); O99.323 Drug use complicating pregnancy, third trimester; F14.10 Cocaine abuse, uncomplicated; Z3A.39 39 weeks gestation of pregnancy
CPT/HCPCS: 80307; 81005

== ENCOUNTER 2018-08-12 07:15 | Inpatient (IN) | payer MEDICAID ==
[2018-08-12] MEDS ORDERED: MISOPROSTOL 0.2 MG TABLET ONE (08:14)
[2018-08-12] MEDS ORDERED: LIDOCAINE 1% INJ-PF (10 MG/ML) 30 ML SDV ONE (08:14)
[2018-08-12] MEDS ORDERED: OXYTOCIN/NORMAL SALINE 20 UNIT/1,000 ML RTUINJ ONE (08:14)
[2018-08-12] MEDS ORDERED: ONDANSETRON HCL INJ/PF 4 MG/2 ML SDV IV ONE (08:29)
[2018-08-12] MEDS ORDERED: ONDANSETRON HCL INJ/PF 4 MG/2 ML SDV ONE (08:30)
[2018-08-12 09:20] LABS: HEMATOCRIT 34.7 % (36.0-47.0); HEMOGLOBIN 11.6 g/dL (12.0-15.5); MEAN CORPUSCULAR HEMOGLOBIN 28.7 pg (27.0-33.4); MEAN CORPUSCULAR HGB CONC 33.5 g/dL (32.0-36.0); MEAN CORPUSCULAR VOLUME 86 fl (80-97); PLATELET COUNT 300 10^3/uL (150-450); RED BLOOD COUNT 4.05 10^6/uL (3.72-5.28); RED CELL DISTRIBUTION WIDTH 14.2 % (11.5-14.0); WHITE BLOOD COUNT 10.8 10^3/uL (4.0-10.5)
[2018-08-12] MEDS ORDERED: IBUPROFEN 800 MG TABLET ONE (12:16)
[2018-08-12] MEDS ORDERED: OXYTOCIN/NORMAL SALINE 1,000 ML IV PRN (12:20)
[2018-08-12] MEDS ORDERED: DIBUCAINE 1% OINTMENT 56 GM TP PRN (12:20)
[2018-08-12] MEDS ORDERED: DIPH/PERTUSS(ACELL)/TETANUS VAC/PF 0.5 ML SYR (>=10YO) IM PRN (12:20)
[2018-08-12] MEDS ORDERED: ACETAMINOPHEN WITH CODEINE #3 TABLET PO PRN ×2 (12:20)
[2018-08-12] MEDS ORDERED: BENZOCAINE/MENTHOL AEROSOL SPRAY 56 ML TOP PRN (12:20)
[2018-08-12] MEDS ORDERED: BENZOCAINE/MENTHOL AEROSOL SPRAY 56 ML ONE (12:32)
--- NOTE | 2018-08-12 12:51 | Admission Physical ---
Datetime Report Generated by CPN: 08/12/2018 12:51 CURRENT ADMISSION Chief Complaint: Uterine Contractions Indication for Induction: Not Applicable Admit Impression : Term, Intrauterine ; Active Labor; Ruptured Membranes Admit Plan: Admit to Unit; Initiate Labor Protocol ALLERGIES Medication Allergies: No Medication Allergies: No Known Drug Allergies (08/11/2018) Latex: No Latex Allergies OBSTETRICAL HISTORY EDC: 08/12/2018 00:00 : 1 Para: 0 Term: 0 : 0 SAB: 0 IAB: 0 Ectopic: 0 Livin Cesareans: 0 VBACs: 0 Multiple Births: 0 Gestational Diabetes: No Rh Sensitization: No Incompetent Cervix: No VIOLETTA: No Infertility: No ART Treatment: No Uterine Anomaly: No IUGR: No Hx Previous C/S: No Macrosomia: No Hx Loss/Stillborn: No PIH: No Hx : No Placenta Previa/Abruption: No Depression/PP Depression: No PTL/PROM: No Post Hemorrhage: No Current Procedures: Ultrasound Obstetrical History Comments: G-1 first active THC and cocaine use SEE RECORDS Alcohol: No Marijuana : Yes Marijuana Frequency: 3 - 5 Times Per Week Years Used: 1 Last Used: 08/12/2018 00:00 Previous Treatment: None Cocaine: Yes Cocaine Frequency: 3 - 5 Times Per Week Years of Use: 1 Last Used: 08/10/2018 Previous Treatment: Outpatient Treatment Other Illicit Drugs: No Cigarettes: Current Everyday Smoker. [id number] Cigarette Frequency: < 5 per day Advised to Stop: Yes MEDICAL HISTORY Diabetes: No Blood Transfusion: No Pulmonary Disease (Asthma, TB): No Breast Disease: No Hypertension: No Ux Engineer Surgery: No Heart Disease: No Hosp/Surgery: No Autoimmune Disorder: No Anesthetic Complications: No Kidney Disease: No Abnormal Pap Smear: No Neuro/Epilepsy: No Psychiatric Disorders: No Other Medical Diseases: No Hepatitis/Liver Disease: No Significant Family History: Yes Varicosities/Phlebitis: Unknown Trauma/Violence : No Thyroid Dysfunction: No Medical History Comments: mother age 57, brother age 35 INFECTIOUS HISTORY Gonorrhea: No Genital Herpes: No Chlamydia: Yes Tuberculosis: No Syphilis: No Hepatitis: No HIV/AIDS Exposure: No Rash or Viral Illness: Yes HPV: No Infectious History Comments: c/o infected feet itching and discharge PHYSICAL EXAM General: Normal HEENT: Normal Neurologic: Normal Thyroid: Normal Heart: Normal Lungs: Normal Breast: Normal Back: Normal Abdomen: Normal Genitourinary Exam: Normal Extremities: Normal DTRs: Normal Pelvic Type: Adequate Vital Signs: Reviewed; Within Normal Limits VAGINAL EXAM Dilatation: 5 Effacement: 80 Station: 0 MEMBRANES Membranes: Ruptured Amniotic Fluid Color: Meconium, Light FETUS A EGA: 40.0 Monitoring: External US Admit Comment: presenst to L_D c/o contractions. Her cervix was 5 cm. She was here on Monday and her cervix was 1 cm. GBS Neg. PLANS FOR LABOR AND DELIVERY Labor and Delivery: None Pain Management: Epidural Feeding Preference: Formula Benefit of Breast Feed Discussed: Yes Circumcision: Yes INFORMED CONSENT Signature: with User ID: [email or web address]
--- NOTE | 2018-08-12 13:04 | Delivery Summary ---
Del Sum A-C Datetime Report Generated by CPN: 08/12/2018 13:04 DELIVERY PERSONNEL DELIVERY PERSONNEL: [id number] Delivery Doctor:: Clara Carrillo MD Labor and Delivery Nurse:: Rosette Herrera RN Nursery Nurse:: Marce Lund RN Derivatives Trader/PETROLOGIST: Genna Del Cid, ST Derivatives Trader/PETROLOGIST: Malu Hill, LIVING COACH MATERNAL INFORMATION Delivery Anesthesia: None Medications After Delivery: Pitocin Drip 20 Units/1000ml NSS Estimated Blood Loss (ml): 100 Maternal Complications: None Provider Comments: of a viable female @ 1046 with an JUANITA presentation; APGARS 8, 9; first deg vag lac LABOR SUMMARY EDC: 08/12/2018 00:00 No. Babies in Womb: 1 Attempted: No Labor Anesthesia: None LABOR INFORMATION Reason for Induction: Not Applicable Onset of Labor: 08/12/2018 04:00 Complete Dilatation: 08/12/2018 10:04 Oxytocin: N/A Group B Beta Strep: negative Steroids Given: None Reason Steroids Not Administered: Not Applicable MEMBRANES Membranes Rupture Method: Spontaneous Rupture of Membranes: 08/12/2018 04:00 Length of Rupture (hr): 6.77 Amniotic Fluid Color: Light Meconium Amniotic Fluid Amount: Small Amniotic Fluid Odor: Normal STAGES OF LABOR Stage 1 hr: 6 Stage 1 min: 4 Stage 2 hr: 0 Stage 2 min: 42 Stage 3 hr: 0 Stage 3 min: 7 Total Time in Labor hr: 6 Total Time in Labor min: 53 VAGINAL DELIVERY Episiotomy: None Laceration #1: Vaginal Laceration Extension #1: First Degree Laceration Repair: Yes Laceration Repair Note: vaginal repaired with 3-0 chromic Sponge Count Correct: Yes Sharps Count Correct: Yes CSECTION DELIVERY Primary Indication: N/A Secondary Indication: N/A CSection Incidence: N/A Labor: N/A Elective: N/A CSection Incision: N/A BABY A INFORMATION Delivery Date/Time: 08/12/2018 10:46 Method of Delivery: Vaginal Born in Route : No : N/A Forceps: N/A Vacuum Extraction: N/A Shoulder Dystocia : No PRESENTATION/POSITION BABY A Presentation: Cephalic Cephalic Presentation: Vertex Vertex Position: Left Occipital Anterior Breech Presentation: N/A PLACENTA INFORMATION BABY A Placenta Delivery Time : 08/12/2018 10:53 Placenta Method of Delivery: Spontaneous Placenta Status: Delivered SCORES BABY A Heart Rate 1 min: >100 bpm Resp Effort 1 min: Good Cry Reflex Irritability 1 min: Cough or Sneeze or Pulls Away Muscle Tone 1 min: Active Motion Color 1 min: Blue/Pale SCORE 1 MIN: 8 Heart Rate 5 min: >100 bpm Resp Effort 5 min: Good Cry Reflex Irritability 5 min: Cough or Sneeze or Pulls Away Muscle Tone 5 min: Active Motion Color 5 min: Body [place], Extremities Blue SCORE 5 MIN: 9 INFANT INFORMATION BABY A Gestational Age at Delivery: 40.0 Gestational Status: Full Term- 39- 40.6 Weeks Outcome : Liveborn Condition : Stable Infant Sex: Female IDENTIFICATION BABY A Verification Date/Time: 08/12/2018 11:10 ID Band Number: [id number] Mother's Name Verified: Yes Infant RN Verifying : B Baidy RN/ H Ady RN WEIGHT/LENGTH BABY A Birthweight (gm): 2738 Weight (lb): 6 Infant Weight (oz): 1 Infant Length (in): 19.25 Infant Length (cm): 48.90 CORD INFORMATION BABY A No. Cord Vessels: 3 Nuchal Cord : N/A Cord Blood Taken: Yes-For Storage (Mom's Blood type +) Infant Suction: None ASSESSMENT BABY A Complications: Meconium Physical Findings at Delivery: Within Normal Limits Respirations: Appears Normal Skin to Skin: No Manufacturing Engineer Chief/ALS Called : No Infant Care By: R Kevon RN Transferred To: Remains with Mother BABY B INFORMATION : N/A SIGNATURES Signature: with User ID: [email or web address]
[2018-08-12] MEDS: FERROUS SULFATE 325 MG TABLET PO SCH (17:37)
[2018-08-12] MEDS ORDERED: DOCUSATE SODIUM 100 MG CAPSULE PO SCH ×2 (18:00→22:00)
[2018-08-12] MEDS: IBUPROFEN 800 MG TABLET PO SCH ×2 (18:35→21:34)
[2018-08-12] MEDS: ZOLPIDEM TARTRATE 5 MG TABLET PO PRN (21:34)
[2018-08-13] MEDS: IBUPROFEN 800 MG TABLET PO SCH ×3 (05:19→21:26)
[2018-08-13 06:37] LABS: HEMATOCRIT 30.3 % (36.0-47.0); HEMOGLOBIN 10.2 g/dL (12.0-15.5); MEAN CORPUSCULAR HEMOGLOBIN 28.8 pg (27.0-33.4); MEAN CORPUSCULAR HGB CONC 33.5 g/dL (32.0-36.0); MEAN CORPUSCULAR VOLUME 86 fl (80-97); PLATELET COUNT 234 10^3/uL (150-450); RED BLOOD COUNT 3.54 10^6/uL (3.72-5.28); RED CELL DISTRIBUTION WIDTH 14.2 % (11.5-14.0); WHITE BLOOD COUNT 12.9 10^3/uL (4.0-10.5)
--- NOTE | 2018-08-13 09:13 | PDOC PROGRESS REPORT ---
Subjective-OB Progress Note for:: 08/13/18 Subjective: Pt doing well. No concerns. She reports light bleeding, reg diet and voiding without difficulty. Physical Exam (OB) Vital Signs: Temp Pulse Resp BP Pulse Ox 98.2 F 59 L 16 126/93 H 99 08/13/18 09:08 08/13/18 09:08 08/13/18 09:08 08/13/18 09:08 08/13/18 09:08 Intake & Output 08/12/18 08/13/18 08/14/18 06:59 06:59 06:59 Output Total 480 Balance -480 Weight 71.6 kg - PIH/Pre-Eclampsia Clonus: Negative Headache: Absent Epigastric Pain: No Visual Changes: No - Lochia Lochia Amount: Scant < 10 ml Lochia Color: Rubra/Red - Abdomen Description: Soft, Flat Hernia Present: No Fundal Description: Firm Fundal Height: u/u - u/2 Objective-Diagnostic Laboratory: 08/13/18 06:03 08/12/18 08/12/18 08/13/18 08:45 08:45 06:03 WBC 10.8 H 12.9 H RBC 4.05 3.54 L Hgb 11.6 L 10.2 L Hct 34.7 L 30.3 L MCV 86 86 MCH 28.7 28.8 MCHC 33.5 33.5 RDW 14.2 H 14.2 H Plt Count 300 234 Blood Type O POSITIVE Antibody Screen NEGATIVE Assessment and Plan(PN) - Assessment and Plan (1) Vaginal delivery Is this a current diagnosis for this admission?: Yes - Time Spent with Patient Time with patient: Less than 15 minutes Medications reviewed and adjusted accordingly: Yes - Disposition Anticipated Discharge: Home Within: within 24 hours
[2018-08-13] MEDS: SENNOSIDES/DOCUSATE 8.6-50 MG 1 EACH TABLET PO SCH (10:27)
[2018-08-13] MEDS: DOCUSATE SODIUM 100 MG CAPSULE PO SCH ×2 (10:27→17:10)
[2018-08-13] MEDS: PRENATAL VITAMIN W DHA CAPSULE PO SCH (10:27)
[2018-08-13] MEDS: FERROUS SULFATE 325 MG TABLET PO SCH ×2 (10:27→17:10)
[2018-08-13 13:48] LABS: URINE AMPHETAMINES SCREEN NEGATIVE; URINE BARBITURATES SCREEN NEGATIVE; URINE BENZODIAZEPINES SCREEN NEGATIVE; URINE METHADONE SCREEN NEGATIVE; URINE PHENCYCLIDINE SCREEN NEGATIVE
[2018-08-13 13:58] LABS: URINE COCAINE SCREEN UNCONFIRMED POSITIVE
[2018-08-13 13:59] LABS: URINE MARIJUANA (THC) SCREEN UNCONFIRMED POSITIVE
[2018-08-13] MEDS ORDERED: DIPH/PERTUSS(ACELL)/TETANUS VAC/PF 0.5 ML SYR (>=10YO) IM PRN (14:00)
[2018-08-13] MEDS: ZOLPIDEM TARTRATE 5 MG TABLET PO PRN (21:29)
[2018-08-14] MEDS: IBUPROFEN 800 MG TABLET PO SCH ×2 (05:03→13:21)
[2018-08-14] MEDS: PRENATAL VITAMIN W DHA CAPSULE PO SCH (09:32)
[2018-08-14] MEDS: SENNOSIDES/DOCUSATE 8.6-50 MG 1 EACH TABLET PO SCH (09:32)
[2018-08-14] MEDS: DOCUSATE SODIUM 100 MG CAPSULE PO SCH ×2 (09:33→17:22)
[2018-08-14] MEDS: FERROUS SULFATE 325 MG TABLET PO SCH ×2 (09:33→17:22)
--- NOTE | 2018-08-14 09:38 | PDOC DISCHARGE SUMMARY ---
Final Diagnosis Discharge Date: 08/14/18 - Final Diagnosis (1) Cocaine abuse affecting Is this a current diagnosis for this admission?: Yes (2) Vaginal delivery Is this a current diagnosis for this admission?: Yes (3) Obstetrical laceration, first degree Is this a current diagnosis for this admission?: Yes Discharge Data - Discharge Medication Prescriptions: Hydroxyzine HCl [Atarax 25 mg Tablet] 1 - 2 tab PO QHS PRN #25 tablet PRN Reason: Ibuprofen [Motrin 800 mg Tablet] 800 mg PO Q8HP PRN #90 tablet PRN Reason: Home Medications: Pnv,Calcium 72/Iron/Folic Acid [ Plus Tablet] 1 tab PO DAILY 04/09/18 Hydroxyzine HCl [Atarax 25 mg Tablet] 1 - 2 tab PO QHS PRN #25 tablet 08/14/18 Ibuprofen [Motrin 800 mg Tablet] 800 mg PO Q8HP PRN #90 tablet 08/14/18 Procedures: NST Intrapartum Procedure(s): Spontaneous Vaginal Delivery Complication(s): Laceration-Vaginal Laceration-Degree: 1st - Diagnosis Test Laboratory: Temp Pulse Resp BP Pulse Ox 97.8 F 61 16 137/80 H 100 08/14/18 08:02 08/14/18 08:02 08/14/18 08:02 08/14/18 08:02 08/14/18 08:02 08/12/18 08/13/18 08/13/18 08:45 06:03 12:50 RBC 4.05 3.54 L Hgb 11.6 L 10.2 L Hct 34.7 L 30.3 L Urine Opiates Screen UNCONFIRMED POSITIVE - Discharge information/Instructions Discharge Activity: Balance Activity w/Rest, Pelvic Rest Discharge Diet: Regular Disposition: HOME, SELF-CARE Follow up with: [facility] in: 4, Weeks
[2018-08-14 17:37] VITALS: BP 126/93
== END 2018-08-14 18:30 | disposition home or self-care (01) | DRG 807 ==
LOC: LC 07:15 → LR 07:46 → 2S 13:20
PROVIDERS: ADMIT Obstetrics & Gynecology; ATTEND Obstetrics & Gynecology
PROC: 10E0XZZ Delivery of Products of Conception, External Approach (ICD-10-PCS; principal; 2018-08-12)
PROC: 0HQ9XZZ Repair Perineum Skin, External Approach (ICD-10-PCS; 2018-08-12)
PROC: 4A1HXCZ Monitoring of Products of Conception, Cardiac Rate, External Approach (ICD-10-PCS; 2018-08-12)
DX: O99.324 Drug use complicating childbirth (principal); Z37.0 Single live birth; F14.10 Cocaine abuse, uncomplicated; O70.0 First degree perineal laceration during delivery; O99.334 Smoking (tobacco) complicating childbirth; F17.210 Nicotine dependence, cigarettes, uncomplicated; F12.90 Cannabis use, unspecified, uncomplicated; Z3A.40 40 weeks gestation of pregnancy
CPT/HCPCS: 36415; 80307; 80349; 80353; 84112; 85027; 86592; 86850; 86900; 86901; G0480; J2405; J2590; J3490

== ENCOUNTER 2019-01-12 13:28 | Emergency (ER) | payer MEDICAID ==
--- NOTE | 2019-01-12 13:39 | ER Document Report ---
ED Medical Screen (RME) - General Chief Complaint: Pain All Over Stated Complaint: BODY PAIN Time Seen by Provider: 01/12/19 13:36 Mode of Arrival: Ambulatory Information source: Patient Notes: 28-year-old female presented to ED for complaint of body pain all over. Started this morning. She states she had runny nose and congestion yesterday. She denies any fevers. States she smokes 3 cigarettes a day, denies any alcohol or drugs. Last menstrual cycle was before the of her 5-month-old daughter. She states she has been nausea and vomiting since she got her first Depakote shot in October. I have greeted and performed a rapid initial assessment of this patient. A comprehensive ED assessment and evaluation of the patient, analysis of test results and completion of medical decision making process will be conducted by an additional ED providers. TRAVEL OUTSIDE OF THE [place] IN LAST 30 DAYS: No - Related Data Allergies/Adverse Reactions: No Known Drug Allergies Allergy (Verified 08/11/18 01:25) Past Medical History Pulmonary Medical History: Reports: Hx Bronchitis Endocrine Medical History: Denies: Hx Diabetes Mellitus Type 1, Hx Diabetes Mellitus Type 2 Renal/ Medical History: Denies: Hx Peritoneal Dialysis Musculoskeltal Medical History: Reports Hx Arthritis, Reports Hx Musculoskeletal Deformity - Sciatica - Immunizations Immunizations up to date: Yes Hx Diphtheria, Pertussis, Tetanus Vaccination: Yes
[2019-01-12 14:43] LABS: APPEARANCE,URINE CLOUDY; BILIRUBIN,URINE NEGATIVE (NEGATIVE); COLOR,URINE YELLOW; GLUCOSE, URINE NEGATIVE (NEGATIVE); KETONES,URINE NEGATIVE (NEGATIVE); PROTEIN,URINE NEGATIVE (NEGATIVE); URINE SPECIFIC GRAVITY 1.025; UROBILINOGEN,URINE NEGATIVE mg/dL (<2.0)
[2019-01-12 14:46] LABS: ALBUMIN 4.3 g/dL (3.5-5.0); ALKALINE PHOSPHATASE 86 U/L (38-126); ANION GAP 9 (5-19); ASPARTATE AMINO TRANSFERASE 21 U/L (14-36); BILIRUBIN,TOTAL 1.5 mg/dL (0.2-1.3); BLOOD UREA NITROGEN 14 mg/dL (7-20); CALCIUM 9.5 mg/dL (8.4-10.2); CARBON DIOXIDE 23 mmol/L (22-30); CHLORIDE 108 mmol/L (98-107); GLUCOSE 95 mg/dL (75-110); POTASSIUM 4.2 mmol/L (3.6-5.0); TOTAL PROTEIN 8.1 g/dL (6.3-8.2)
[2019-01-12 16:29] LABS: ABSOLUTE BASOPHILS # (AUTO) 0.1 10^3/uL (0.0-0.2); ABSOLUTE EOSINOPHILS # (AUTO) 0.3 10^3/uL (0.0-0.6); ABSOLUTE MONOCYTES (AUTO) 0.8 10^3/uL (0.1-1.4); ABSOLUTE NEUT (AUTO) 5.2 10^3/uL (1.7-8.2); LYMPHOCYTES % (AUTO) 32.1 % (13-45); MEAN CORPUSCULAR HEMOGLOBIN 28.8 pg (27.0-33.4); MEAN CORPUSCULAR HGB CONC 33.4 g/dL (32.0-36.0); MEAN CORPUSCULAR VOLUME 86 fl (80-97); MONOCYTES % (AUTO) 8.3 % (3-13); PLATELET COUNT 292 10^3/uL (150-450); RED BLOOD COUNT 4.53 10^6/uL (3.72-5.28); RED CELL DISTRIBUTION WIDTH 14.2 % (11.5-14.0); SEGMENTED NEUTROPHILS % (AUTO) 55.6 % (42-78); TOTAL CELLS COUNTED % (AUTO) 100 %; WHITE BLOOD COUNT 9.3 10^3/uL (4.0-10.5)
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
[2019-01-12 18:10] LABS: RBCS (WET MOUNT) RARE RBCS SEEN; T.VAGINALIS (WET MOUNT) TRICHOMONAS SEEN; WBCS (WET MOUNT) 2+ WBCS SEEN; YEAST (WET MOUNT) YEAST SEEN
[2019-01-12 18:11] LABS: BACTERIA (WET MOUNT) 3+ BACTERIA SEEN; EPITHELIALS (WET MOUNT) 3+ EPITHELIALS SEEN
--- NOTE | 2019-01-12 18:31 | RADIOLOGY REPORT (SQ) ---
EXAM DESCRIPTION: U/S NON OB PEL TV W/DOPPLER COMPLETED DATE/TIME: 01/12/2019 6:06 pm REASON FOR STUDY: pelvic pain/discharge; eval tuboovarian abcess COMPARISON: None. TECHNIQUE: Dynamic and static grayscale images acquired of the pelvis via transvaginal approach and recorded on PACS. Additional selected color Doppler and spectral images recorded. LIMITATIONS: None. FINDINGS: UTERUS: Contour normal. No mass. ENDOMETRIAL STRIPE: No focal or generalized thickening. No masses. CERVIX: No nabothian cysts. RIGHT OVARY AND DOPPLER: Normal size. No worrisome masses. Normal arterial vascular flow without evid ence for torsion. LEFT OVARY AND DOPPLER: Normal size. No worrisome masses. Normal arterial vascular flow without evide nce for torsion. FREE FLUID: None noted. OTHER: No other significant finding. MEASUREMENTS: UTERUS: 6.4 x 3.2 x 4.6 cm ENDOMETRIAL STRIPE: 6.4 mm RIGHT OVARY: 2.8 x 1.9 x 1.8 cm LEFT OVARY: 2.7 x 1.7 x 2.7 cm IMPRESSION: UNREMARKABLE TRANSVAGINAL PELVIC ULTRASOUND. TECHNICAL DOCUMENTATION: JOB ID: [id number]- All Rights Reserved Rev-07/28 Reading location - IP/workstation name: [email or web address]
[2019-01-12] MEDS ORDERED: AZITHROMYCIN 250 MG TABLET PO ONE (18:48)
[2019-01-12] MEDS ORDERED: LIDOCAINE 1% INJ-PF (10 MG/ML) 30 ML SDV INJ ONE (18:48)
[2019-01-12] MEDS ORDERED: CEFTRIAXONE INJ 250 MG VIAL IM ONE (18:48)
[2019-01-12] MEDS ORDERED: FLUCONAZOLE 100 MG TABLET PO ONE (18:52)
[2019-01-12] MEDS ORDERED: ACETAMINOPHEN 325 MG TABLET PO ONE (18:59)
[2019-01-12] MEDS ORDERED: HYDROCODONE/ACETAMINOPHEN 5-325 MG (6 TAB/ER DISP) PO PRN (19:00)
[2019-01-12 19:22] VITALS: BP 140/104
[2019-01-12 19:40] LABS: CHLAM PCR NOT DETECTED (NOT DETECT)
== END 2019-01-12 19:25 | disposition home or self-care (01) ==
LOC: ER 13:28
DX: S02.2XXA Fracture of nasal bones, initial encounter for closed fracture (principal); N73.9 Female pelvic inflammatory disease, unspecified; B37.49 Other urogenital candidiasis; Y04.2XXA Assault by strike against or bumped into by another person, initial encounter; M79.10 Myalgia, unspecified site; R10.30 Lower abdominal pain, unspecified; F17.200 Nicotine dependence, unspecified, uncomplicated
CPT/HCPCS: 36415; 87086; 87210; 84703; 85025; 80053; 81001; 87491; 87591; 70160; 76830; 93976; J3490 ×3; Q0144; J0696; 96372; 99284

== ENCOUNTER 2019-02-18 13:21 | Emergency (ER) | payer SELFPAY ==
[2019-02-18] MEDS ORDERED: ONDANSETRON 4 MG TAB.RAPDIS PO ONE (14:49)
[2019-02-18] MEDS ORDERED: NORMAL SALINE 1000 ML 1,000 ML IV ONE (14:49)
--- NOTE | 2019-02-18 14:50 | ER Document Report ---
ED Medical Screen (RME) - General Stated Complaint: FEVER/VOMITING/DIAHERRA Time Seen by Provider: 02/18/19 14:45 Mode of Arrival: Ambulatory Information source: Patient Notes: Patient presents complaining of cold symptoms that started yesterday. Patient with cough that started yesterday that is modestly improved today. Patient states today she developed nausea vomiting and diarrhea with intermittent abdominal pain. Patient denies any urinary symptoms. Patient reports vomiting 4 times and having diarrhea 4 times. I have greeted and performed a rapid initial assessment of this patient. A comprehensive ED assessment and evaluation of the patient, analysis of test results and completion of the medical decision making process will be conducted by additional ED providers. TRAVEL OUTSIDE OF THE [place] IN LAST 30 DAYS: No - Related Data Allergies/Adverse Reactions: No Known Drug Allergies Allergy (Verified 08/11/18 01:25) Past Medical History Pulmonary Medical History: Reports: Hx Bronchitis Endocrine Medical History: Denies: Hx Diabetes Mellitus Type 1, Hx Diabetes Me llitus Type 2 Renal/ Medical History: Denies: Hx Peritoneal Dialysis Musculoskeltal Medical History: Reports Hx Arthritis, Reports Hx Musculoskeletal Deformity - Sciatica - Immunizations Immunizations up to date: Yes Hx Diphtheria, Pertussis, Tetanus Vaccination: Yes Physical Exam - Vital signs Vitals: Temp Pulse Resp BP Pulse Ox 97.4 F 76 18 109/96 H 98 02/18/19 14:13 02/18/19 14:13 02/18/19 14:13 02/18/19 14:13 02/18/19 14:13 - Abdominal Tenderness: Tender - upper abdomen Course - Vital Signs Vital signs: Temp Pulse Resp BP Pulse Ox 97.4 F 76 18 109/96 H 98 02/18/19 14:13 02/18/19 14:13 02/18/19 14:13 02/18/19 14:13 02/18/19 14:13
[2019-02-18 15:44] LABS: APPEARANCE,URINE SLIGHTLY-CLOUDY; BILIRUBIN,URINE SMALL (NEGATIVE); COLOR,URINE AMBER; GLUCOSE, URINE NEGATIVE (NEGATIVE); KETONES,URINE TRACE mg/dL (NEGATIVE); LEUKOCYTE ESTERASE,URINE NEGATIVE (NEGATIVE); NITRITE,URINE NEGATIVE (NEGATIVE); PROTEIN,URINE 100 mg/dL (NEGATIVE); URINE SPECIFIC GRAVITY 1.034; UROBILINOGEN,URINE NEGATIVE mg/dL (<2.0)
[2019-02-18 15:49] LABS: HEMATOCRIT 43.7 % (36.0-47.0); HEMOGLOBIN 14.3 g/dL (12.0-15.5); MEAN CORPUSCULAR HEMOGLOBIN 28.7 pg (27.0-33.4); MEAN CORPUSCULAR HGB CONC 32.8 g/dL (32.0-36.0); MEAN CORPUSCULAR VOLUME 87 fl (80-97); PLATELET COUNT 289 10^3/uL (150-450); RED BLOOD COUNT 5.01 10^6/uL (3.72-5.28); RED CELL DISTRIBUTION WIDTH 13.8 % (11.5-14.0); WHITE BLOOD COUNT 11.6 10^3/uL (4.0-10.5)
[2019-02-18 16:08] LABS: ALBUMIN 4.8 g/dL (3.5-5.0); ALKALINE PHOSPHATASE 108 U/L (38-126); ANION GAP 13 (5-19); ASPARTATE AMINO TRANSFERASE 19 U/L (14-36); BILIRUBIN,DIRECT 0.1 mg/dL (0.0-0.4); BILIRUBIN,TOTAL 0.9 mg/dL (0.2-1.3); BLOOD UREA NITROGEN 15 mg/dL (7-20); CARBON DIOXIDE 23 mmol/L (22-30); CHLORIDE 107 mmol/L (98-107); GLUCOSE 154 mg/dL (75-110); POTASSIUM 3.9 mmol/L (3.6-5.0); TOTAL PROTEIN 8.7 g/dL (6.3-8.2)
[2019-02-18 16:14] LABS: ABSOLUTE LYMPHOCYTES# (MANUAL) 0.5 10^3/uL (0.5-4.7); ABSOLUTE MONOCYTES # (MANUAL) 0.3 10^3/uL (0.1-1.4); BASOPHILS % (MANUAL) 0 % (0-2); EOSINOPHILS % (MANUAL) 0 % (0-6); LYMPHOCYTES % (MANUAL) 4 % (13-45); MONOCYTES % (MANUAL) 3 % (3-13); SEGMENTED NEUTROPHILS % (MAN) 93 % (42-78); TOTAL CELLS COUNTED 100
[2019-02-18 16:15] LABS: ANISOCYTOSIS SLIGHT; PLATELET COMMENT ADEQUATE
--- NOTE | 2019-02-18 19:17 | ER Document Report ---
ED General - General Chief Complaint: Cold Symptoms Stated Complaint: FEVER/VOMITING/DIAHERRA Time Seen by Provider: 02/18/19 14:45 Mode of Arrival: Ambulatory Notes: 28-year-old healthy female presents to the emergency department with cold-like symptoms for 1 week and nausea and vomiting for the past 24 hours. Patient states that she developed a cough, runny nose, and congestion last Monday. 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 Patient states that she started developing vomiting and diarrhea last night. She has vomited 4 times and had 4 episodes of diarrhea described as watery. She says that she is not been able control the vomiting had to well puller head in her vehicle to vomit in route to the emergency department. Denies any fevers, did complain of chills, denies any acute shortness of breath or chest pain, denies abdominal pain does complain of a burning sensation in the pit of her stomach, denies any abnormal vaginal bleeding or urinary symptoms. TRAVEL OUTSIDE OF THE [place] IN LAST 30 DAYS: No - Related Data Allergies/Adverse Reactions: No Known Drug Allergies Allergy (Verified 08/11/18 01:25) Home Medications: Depo Past Medical History - General Information source: Patient - Social History Smoking Status: Current Every Day Smoker Chew tobacco use (# tins/day): No Frequency of alcohol use: Occasional Drug Abuse: Marijuana Family History: Hypertension, Other - Early I had stated that follow was on dialysis actually it is her mother that it was on dialysis and has since Patient has suicidal ideation: No Patient has homicidal ideation: No Pulmonary Medical History: Reports: Hx Bronchitis Endocrine Medical History: Denies: Hx Diabetes Mellitus Type 1, Hx Diabetes Mellitus Type 2 Renal/ Medical History: Denies: Hx Peritoneal Dialysis Musculoskeletal Medical History: Reports Hx Arthritis, Reports Hx Musculoskeletal Deformity - Sciatica - Immunizations Immunizations up to date: Yes Hx Diphtheria, Pertussis, Tetanus Vaccination: Yes Review of Systems - Review of Systems Constitutional: See HPI EENT: No symptoms reported Cardiovascular: See HPI Respiratory: See HPI Gastrointestinal: See HPI Genitourinary: See HPI Female Genitourinary: See HPI Musculoskeletal: No symptoms reported Skin: No symptoms reported Hematologic/Lymphatic: No symptoms reported Neurological/Psychological: No symptoms reported Physical Exam - Vital signs Vitals: Temp Pulse Resp BP Pulse Ox 97.4 F 76 18 109/96 H 98 02/18/19 14:13 02/18/19 14:13 02/18/19 14:13 02/18/19 14:13 02/18/19 14:13 - Notes Notes: PHYSICAL EXAMINATION: Reviewed vital signs and charting by RN GENERAL: Alert, interacts well. No acute distress. HEAD: Normocephalic, atraumatic. EYES: Pupils equal and round. Extraocular movements intact. ENT: Oral mucosa moist, tongue midline. NECK: Full range of motion. Trachea midline. LUNGS: Clear to auscultation bilaterally, no wheezes, rales, or rhonchi. No respiratory distress. HEART: Regular rate and rhythm. No murmur ABDOMEN: soft, non-tender. No distention. Bowel sounds present EXTREMITIES: Moves all 4 extremities spontaneously. No edema, No cyanosis. PSYCH: Normal affect, normal mood. SKIN: Warm, dry, normal turgor. No rashes or lesions noted. Course - Re-evaluation Re-evalutation: 02/18/19 19:18 Well-appearing no acute distress, nontoxic. Lab work all within normal limits with the exception of a very mild leukocytosis most likely demarginalization from stress response. Patient given Zofran p.o. with good response. Patient challenged with p.o. fluids and nelson crackers and she is able to tolerate them. Patient is stable for discharge and agrees with plan. Patient given strict return precautions. - Vital Signs Vital signs: Temp Pulse Resp BP Pulse Ox 98.1 F 86 16 128/85 H 97 02/18/19 19:06 02/18/19 19:06 02/18/19 19:06 02/18/19 19:06 02/18/19 19:06 - Laboratory Result Diagrams: 02/18/19 15:27 02/18/19 15:27 Laboratory results interpreted by me: 02/18/19 02/18/19 02/18/19 15:27 15:27 15:27 WBC 11.6 H Seg Neuts % (Manual) 93 H Lymphocytes % (Manual) 4 L Abs Neuts (Manual) 10.8 H Glucose 154 H Total Protein 8.7 H Lipase 22.3 L Urine Protein 100 H Urine Ketones TRACE H Urine Blood SMALL H Urine Bilirubin SMALL H Discharge - Discharge Clinical Impression: Nausea and vomiting Qualifiers: Vomiting type: unspecified Vomiting Intractability: non-intractable Qualified Code(s): R11.2 - Nausea with vomiting, unspecified Condition: Good Disposition: HOME, SELF-CARE Instructions: Vomiting ([facility]) Additional Instructions: You have been seen in the Emergency Department (ED) today for nausea and vomiting for the past day, and cold like symptoms for the past 1 week. Your work up today has not shown a clear cause for your symptoms. You have been prescribed Zofran; please use as prescribed as needed for your nausea. Return to the Emergency Department (ED) if you develop severe abdominal pain, bloody vomiting, bloody diarrhea, if you are unable to tolerate fluids due to vomiting, or if you develop other symptoms that concern you. Forms: Return to Work
[2019-02-18] MEDS ORDERED: ONDANSETRON ODT 4 MG TAB (6 TAB/ER DISP) PO PRN (19:53)
[2019-02-18 19:59] VITALS: BP 127/64
== END 2019-02-18 19:59 | disposition home or self-care (01) ==
LOC: ER 13:21
DX: R11.2 Nausea with vomiting, unspecified (principal); R05 Cough; R09.89 Other specified symptoms and signs involving the circulatory and respiratory systems; R19.7 Diarrhea, unspecified; R68.83 Chills (without fever); D72.829 Elevated white blood cell count, unspecified; R19.8 Other specified symptoms and signs involving the digestive system and abdomen; F17.200 Nicotine dependence, unspecified, uncomplicated; Z79.3 Long term (current) use of hormonal contraceptives
CPT/HCPCS: 99283; 36415; 83690; 84703; 85025; 80053; 81001; S0119

== ENCOUNTER 2019-08-18 11:53 | Emergency (ER) | payer SELFPAY ==
[2019-08-18 12:02] VITALS: BP 145/79
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
--- NOTE | 2019-08-18 12:24 | RADIOLOGY REPORT (SQ) ---
EXAM DESCRIPTION: HAND RIGHT 3 VIEWS IMAGES COMPLETED DATE/TIME: 08/18/2019 12:14 pm REASON FOR STUDY: pain. COMPARISON: None. EXAM PARAMETERS: NUMBER OF VIEWS: Three views. TECHNIQUE: AP, lateral and oblique radiographic images acquired of the right hand. LIMITATIONS: None. FINDINGS: MINERALIZATION: Normal. BONES: No acute fracture or dislocation. No worrisome bone lesions. JOINTS: No effusions. SOFT TISSUES: Medial swelling. No foreign body. OTHER: No other significant finding. IMPRESSION: No fracture. TECHNICAL DOCUMENTATION: JOB ID: [id number] [email or web address]- All Rights Reserved Reading location - IP/workstation name: [email or web address]
== END 2019-08-18 13:05 | disposition home or self-care (01) ==
LOC: ER 11:53
DX: S60.221A Contusion of right hand, initial encounter (principal); M79.641 Pain in right hand; Y04.0XXA Assault by unarmed brawl or fight, initial encounter; F17.210 Nicotine dependence, cigarettes, uncomplicated
CPT/HCPCS: 99283

== ENCOUNTER → 2019-11-01 | Outpatient (CLI) | payer SELFPAY ==
--- NOTE | 2019-11-01 11:05 | ER [facility] ASSESSMENT REPORT ---
Intake - In the Last 14 days Have you traveled outside [place]?: No Have you been in close contact with someone CONFIRMED: No Worked in Healthcare?: No - Symptoms Subjective Fever([place] feverish): No Chills: No Muscule Aches: No Runny Nose: No Sore Throat: No Cough (New or worsening chronic cough): No Shortness of breath: Yes Nausea or Vomiting: Yes Headache: Yes Abdominal Pain: Yes Diarrhea(3 or more loose stools in last 24 hours): Yes - Do you have any of the following Chronic lung disease: Asthma or emphysema or COPD: No Cystic Fibrosis: No Diabetes: No High Blood Pressure: No Cardiovascular Disease: No Chronic Kidney Disease: No Chronic Liver Disease: No Chronic blood disorder like Sickle Cell Disease: No Weak immune system due to disease or medication: No Neurologic condition that limits movement: No Developmental delay - Moderate to Severe: No Recent (within past 2 weeks) or current : No Morbid Obesity (>100 pounds over ideal weight): No - Objective Temperature: 96.3 F Pulse Rate: 85 Respiratory Rate: 18 Blood Pressure: 126/90 O2 Sat by Pulse Oximetry: 98 Objective: Given above, testing performed: covid Disposition: Home; Selfcare General - General Chief Complaint: Flu Symptoms Mode of Arrival: Ambulatory Information source: Patient - HPI Notes: Lily 8-year-old female presents [facility] clinic for COVID-19 testing. Patient reports no known contact with COVID-19 positive individual. Onset of symptoms approximately 2 weeks ago. She is complaining of mild intermittent shortness of breath with exertion, nausea, headache, abdominal cramping, and occasional diarrhea. She denies any fever, chills, myalgia, runny nose, sore throat or cough. - Related Data Allergies/Adverse Reactions: No Known Drug Allergies Allergy (Verified 08/11/18 01:25) Past Medical History - General Information source: Patient - Social History Smoking Status: Current Every Day Smoker Cigarette use (# per day): Yes - 10 Family History: Hypertension, Other - Early I had stated that follow was on dialysis actually it is her mother that it was on dialysis and has since - Past Medical History Cardiac Medical History: Reports: None Pulmonary Medical History: Reports: Hx Bronchitis EENT Medical History: Reports: None Neurological Medical History: Reports: None Endocrine Medical History: Reports: None. Denies: Hx Diabetes Mellitus Type 1, Hx Diabetes Mellitus Type 2 Renal/ Medical History: Reports: None. Denies: Hx Peritoneal Dialysis Malignancy Medical History: Reports: None GI Medical History: Reports: None Musculoskeletal Medical History: Reports Hx Arthritis, Reports Hx Musculoskeletal Deformity - Sciatica Skin Medical History: Reports None Psychiatric Medical History: Reports: None Traumatic Medical History: Reports: None Infectious Medical History: Reports: None Past Surgical History: Reports: None Physical Exam - General General appearance: Appears well, Alert In distress: None Notes: PHYSICAL EXAMINATION: GENERAL: Well-appearing and in no acute distress. HEAD: Atraumatic, normocephalic. EYES: sclera anicteric, conjunctiva are normal. ENT: nares patent. Moist mucous membranes. NECK: Normal range of motion, supple without lymphadenopathy. LUNGS: No increased work of breathing. Lung sounds CTAB and equal. No wheezes rales or rhonchi. HEART: Regular rate and rhythm without murmurs. ABDOMEN: Soft, nontender, normal bowel sounds, no guarding. EXTREMITIES: Normal range of motion, no pitting edema. No cyanosis. NEUROLOGICAL: A&O x 3. Normal speech. PSYCH: Normal mood, normal affect. SKIN: Warm, Dry, normal turgor, no rashes or lesions noted Patient Education/Counseling Counseling/Education: Patient presents with symptoms associated with possible Covid 19 infection. Patient does not have emergency worrying symptoms such as difficulty breathing, shortness of breath, chest pain, pressure, confusion or cyanosis. Patient appears suitable for discharge as vital signs are stable and patient is nontoxic in appearance. Good return precautions have been discussed with patient, patient verbalized understanding and is agreeable with discharge plan of care at this time. Guidance for worsening S/SX: As a person under investigation for Covid 19, the [place] department of Health and Human Services, division of public health advises you to adhere to the following guidance until your test results are reported to you. If your test result is positive, you will receive additional information from your provider and your local health department at that time. Remain at home until you are cleared by the health provider or public health authorities. Keep a log of visitors to your home, notify any visitors to your home of your isolation status. If you plan to move to a new address or leave the county, notify the local health department in your County. Call your doctor or seek care if you have an urgent medical need. Before seeking medical care, call ahead to get instructions from the provider before arriving at the medical office clinic or hospital. Notify them that you are being tested for the virus that causes Covid 19 so that arrangements can be made, as necessary, to prevent transmission to others in the healthcare setting. Next, notify the local health department in your county. If a medical emergency arises and you need to call 911, inform the first responders that you are being tested for the virus that causes Covid 19. Next, notify the local health department in your county. [facility] Discharge - Discharge Clinical Impression: Encounter for screening laboratory testing for COVID-19 virus Condition: Good Disposition: Home; Selfcare
[2019-11-01 11:09] VITALS: BP 126/90
== END ==
LOC: RDC 09:28
PROVIDERS: ATTEND Registered Nurse
DX: Z20.828 Contact with and (suspected) exposure to other viral communicable diseases (principal)
CPT/HCPCS: 87635; C9803; 99201; 99211